=== PATIENT | female | born 1945 | race Caucasian/White ===

== ENCOUNTER → 2018-12-28 14:37 | Outpatient (CLI) | payer MEDICARE, BC, SELFPAY ==
--- NOTE | 2018-12-28 14:48 | XR_ITS ---
PROCEDURE: XR RIBS RT MIN 3V W CXR1V CLINICAL INDICATION: RT SIDE CHEST WALL PAIN Cough cough COMPARISON: No exams were available for comparison FINDINGS: A frontal view of the chest shows slight increased density in the right infrahilar region. Possibly due to underlying infiltrate. Multiple views of the right ribs were obtained. No acute rib findings. IMPRESSION: Possible patchy infiltrate in the right middle lobe otherwise negative Dictated by: Tim Horvath MD 12/28/2018 16:03 Signed by: <Electronically signed by Tim Horvath MD in [place]> 12/28/2018 16:03
== END ==
PROVIDERS: PCP Family Medicine; Visit Provider Family Medicine
DX: R07.89 Other chest pain (principal)
CPT/HCPCS: 71101

== ENCOUNTER → 2019-01-26 10:11 | Outpatient (CLI) | payer MEDICARE, BC, SELFPAY ==
--- NOTE | 2019-01-26 10:13 | MM_ITS ---
PROCEDURE: MM DIG SCREENING MAMM BI W/CAD CLINICAL INDICATION: SCREENING There is a history of breast cancer in patient's sister COMPARISON: DMSB DIGITAL MAMM-SCREEN BILATERAL from 01/22/2012 DMSB DIG MAMM-SCREEN KRIS from 05/03/2015 DMDXUAVL DIG MAMM-DX UNI ADD VIEWS-LT from 05/16/2015 DMDXUWAL DIG MAMM-DX UNI LT W ADD VIEW from 10/26/2015 TECHNIQUE: Standard CC and MLO images were obtained. R2 CAD reviewed. FINDINGS: Moderate diffuse fibroglandular densities are seen in both breasts. There is a benign-appearing macrocalcifications right breast and there are couple of benign-appearing microcalcifications in each breast. There is minimal arterial calcification in each breast. There is no suspicious lesion and no suspicious microcalcifications. IMPRESSION: Moderate breast density with no suspicious lesions seen BI-RAD Category: 2 Benign Finding(s) FOLLOW-UP: 1YR 1 Year Follow-up (A letter has been sent to the patient regarding results of the study.) Dictated by: Dr. Lucio Berger MD 01/30/2019 20:[address] Lucio Berger MD in [place] 01/30/2019 20:21
== END ==
PROVIDERS: PCP Family Medicine; Visit Provider Family Medicine
DX: Z12.31 Encounter for screening mammogram for malignant neoplasm of breast (principal)
CPT/HCPCS: 77067

== ENCOUNTER → 2020-11-16 08:08 | Outpatient (CLI) | payer MEDICARE, SELFPAY ==
--- NOTE | 2020-11-16 08:12 | MM_ITS ---
PROCEDURE INFORMATION: Exam: MG Screening 3D Mammography Exam date and time: 11/16/2020 8:12 AM Age: 75 years old Clinical indication: Encounter for screening mammogram for malignant neoplasm of breast . Family history of breast carcinoma. TECHNIQUE: Imaging protocol: Screening tomosynthesis and 2D mammography including computer-aided detection (CAD) when performed. COMPARISON: 1. MG MM DIG SCREENING MAMM BI W/CAD 01/26/2019 10:33 AM 2. MG DMDXUWAL DIG MAMM-DX UNI LT W ADD VIEW 10/26/2015 2:41 PM 3. MG DMDXUAVL DIG MAMM-DX UNI ADD VIEWS-LT 05/16/2015 1:06 PM FINDINGS: MAMMOGRAPHY: Breast composition: The breasts are heterogeneously dense, which may obscure small masses. Mass: No new suspicious masses. Architectural distortion: No suspicious distortion. Calcifications: No suspicious calcifications. Asymmetric density: None. Skin thickening: None. Axillary adenopathy: None. IMPRESSION: No mammographic evidence of malignancy. Annual screening is recommended unless otherwise clinically indicated. ASSESSMENT: BI-RADS Category 1: Negative
== END ==
PROVIDERS: PCP Family Medicine; Visit Provider Family Medicine
DX: Z12.31 Encounter for screening mammogram for malignant neoplasm of breast (principal)
CPT/HCPCS: 77063; 77067

== ENCOUNTER → 2021-03-12 09:43 | Outpatient (CLI) | payer MEDICARE, SELFPAY ==
--- NOTE | 2021-03-12 09:47 | FL_ITS ---
PROCEDURE: FL BARIUM SWALLOW MODIFIED CLINICAL INDICATION: DYSPHAGIA, COMPARISON: No exams were available for comparison TECHNIQUE: Patient administered varying consistencies of barium contrast, while viewed in lateral position under real-time fluoroscopy with cine recording. FLUOROSCOPY TIME:4 minutes and 39 seconds The study was performed in conjunction with speech pathologist. Please see that report & recommendations. FINDINGS: Patient was given varying consistencies of barium. No aspiration or penetration. IMPRESSION: Unremarkable modified barium swallow. Please see speech pathologist report and recommendations. Dictated by: Tim Horvath MD 03/13/2021 16:51 Tim Horvath MD in [place] 03/13/2021 16:51
--- NOTE | 2021-03-12 09:48 | FL_ITS ---
PROCEDURE: FL UPPER GI W AIR CLINICAL INDICATION: ESOPHAGEAL DYSPHAGIA COMPARISON: RF FL BARIUM SWALLOW MODIFIED from 03/12/2021 FINDINGS: Fluoroscopy time: 2.11 minutes. Circumferential narrowing noted at the distal esophagus which may be due to prior knee since fundoplication. Please correlate with patient's surgical history. If there has not been a prior knee since procedure then circumferential external lesion would be a consideration. No history available at this time. There is mild dilatation of the esophagus proximal 2 this area of narrowing. No hiatal hernia apparent. The stomach has an unremarkable appearance. The duodenal bulb descending and transverse portion of the duodenum have a somewhat patulous appearance. No obvious ulcer. There is a mildly prominent diverticulum projecting superiorly from the transverse portion of the duodenum. IMPRESSION: 1. Circumferential narrowing of the distal aspect of the esophagus at the GE junction possibly due to prior knee since fundoplication. Please correlate with surgical history. Mild dilatation of the esophagus proximal to this region with some delayed esophageal emptying. 2. Patulous appearance of the duodenum of uncertain clinical significance. Mildly prominent duodenal diverticulum. Dictated by: Tim Horvath MD 03/13/2021 08:15 Tim Horvath MD in [place] 03/13/2021 08:15
--- NOTE | 2021-03-13 08:40 | HMH.SLMBS2 ---
Speech & Language Evaluation Speech/Language Mod Barium Swallow Start: 03/12/21 11:37 Freq: once Status: Complete Protocol: Document 03/12/21 11:38 OLIVIA (Rec: 03/12/21 11:50 OLIVIA [id number]) General Information General Current Food Consistancy Regular,Thin Liquids Dentition Poor Dentition Comment: no molars Oxygen Status Room Air Facial Symmetry Symmetrical Patient Orientation Person,Place,Time,Situation Ability to Follow Directions Excellent Communication Ability No Impairment MBS Recommendations Diet Dietary Recommendations Regular,Thin Liquids Treatment/Strategies Strategy/Precaution Recommend Sitting Upright (90 deg),Small Bites and Sips,Alternate Liquids/Solids Mod Barium Swallow Impressions Summary and Impressions Oral Phase Impression Minimal Impairment Oral Phase Summary Ms. Babin was given the following consistencies: thins via straw and open cup, pudding, pureed, regular, and pill with thin wash. Ms. Babin did experience longer mastication times due to lack of molars. Pharyngeal Phase Impression Mild Impairment Pharyngeal Phase Summary Ms. Babin did exhibit flash penetration with large volume of thin liquids but no aspiration was noted. When advised to take smaller sips, no penetration was noted. Speech/Language MBS Assessment/Goals/Plan Assessment Date of Evaluation: 03/12/21 Evaluation Type Initial Certification Does Patient Qualify for Service No Qualify/Failure Comment No aspiration was noted during evaluation. Patient was advised to take smaller sips when drinking and to alternate between bite and a sip. Recommendations PHYSICIAN CERTIFICATION: The specified therapy services are required, authorized, and reviewed every 30 days. Diet Recommendations Normal Liquid Type Recommendations Normal/Thin SL Swallow Guidelines Standard Aspiration Prec. Dysphagia Swallow Precautions/Strategies Sitting Upright (90 deg),Small Bites and Sips,Alternate Liquids/Solids Plan Pt/Guardian verbally ack understanding Yes of dx/prognosis/goals G -code Required No Mod Barium Swallow Setup Exam Setup Radiologist
== END ==
PROVIDERS: PCP Family Medicine; Visit Provider Internal Medicine Gastroenterology
DX: R13.19 Other dysphagia (principal)
CPT/HCPCS: 70371; 74246; 92611

== ENCOUNTER → 2021-03-25 07:38 | Outpatient (CLI) | payer MEDICARE, SELFPAY ==
[2021-03-25 08:45] LABS: Blood Urea Nitrogen 18 mg/dl (7-17); Estimated Glomerular Filt Rate 81 ml/min (>60); GFR (African American) 98 ML/MIN (>60)
== END ==
PROVIDERS: Visit Provider Internal Medicine Gastroenterology
DX: R93.3 Abnormal findings on diagnostic imaging of other parts of digestive tract (principal)
CPT/HCPCS: 36415; 82565; 84520

== ENCOUNTER → 2021-03-27 09:45 | Outpatient (CLI) | payer MEDICARE, SELFPAY ==
--- NOTE | 2021-03-27 09:48 | CT_ITS ---
PROCEDURE: CT ABDOMEN W CON CLINICAL HISTORY: ABN UGI SERIES Esophageal dysphagia COMPARISON: CR,RF FL UPPER GI W AIR from 03/12/2021 RF FL BARIUM SWALLOW MODIFIED from 03/12/2021 TECHNIQUE: 75 mL Isovue 370. Oral contrast with Redicat. Axial images obtained with sagittal and coronal reformats. All CT scans at the facility use one or more dose reduction, viz: automated exposure control, ma/kV adjustment per patient size (including targeted exams where dose is matched to indication, i.e. head), or iterative reconstruction technique. FINDINGS: Lower thorax: Small serpiginous areas of increased density in the right lung base etiology indeterminate possibly due to atelectatic change or an area of scarring. Coronary artery calcification Abdomen: The lower esophagus is slightly dilated. There is a small hiatal hernia. At the GE junction there is concentric narrowing of the esophagus. This does not have a typical appearance for a Dangelo fundoplication. The esophageal wall is thickened at this area. Neoplasm is considered and upper endoscopy is suggested. Isolated esophagitis would be an additional consideration. No paraesophageal adenopathy at this region. Prior cholecystectomy. No focal liver lesion apparent. The spleen and adrenal glands and pancreas have an unremarkable appearance. There is a bandlike area soft tissue density along the posterior aspect of the gastric cardia and body junction. Patient gives history of having prior gastric surgery. This could possibly represent postsurgical change. Please correlate with surgical history. No renal or ureteral calculi. No hydronephrosis. No intestinal obstruction. There is thickening of the cecum and ascending colon Mild kyphosis of the lower thoracic spine with degenerative disc disease in the lower thoracic spine. IMPRESSION: 1. Concentric thickening of the distal esophagus with narrowing. Neoplasm or isolated reflux esophagitis is considered. Upper endoscopy suggested. 2. There is a small hiatal hernia and suspected postsurgical changes at the junction of the gastric cardia and body. Please correlate with surgical history. Dictated by: Tim Horvath MD 03/28/2021 08:42 Tim Horvath MD in [place] 03/28/2021 08:42
== END ==
PROVIDERS: PCP Family Medicine; Visit Provider Internal Medicine Gastroenterology
DX: R93.3 Abnormal findings on diagnostic imaging of other parts of digestive tract (principal)
CPT/HCPCS: 74160; Q9967

== ENCOUNTER → 2021-12-11 07:49 | Outpatient (CLI) | payer MEDICARE, SELFPAY ==
--- NOTE | 2021-12-11 08:00 | MM_ITS ---
PROCEDURE INFORMATION: Exam: MG Bilateral Screening 3D Mammography Exam date and time: 12/11/2021 8:02 AM Age: 76 years old Clinical indication: Screening examination. Her sister had breast cancer. TECHNIQUE: Imaging protocol: Bilateral Screening tomosynthesis and 2D mammography including computer-aided detection (CAD) when performed. COMPARISON: 1. MG MM DIG SCREENING MAMM BI W/CAD 11/16/2020 8:33 AM 2. MG MM DIG SCREENING MAMM BI W/CAD 01/26/2019 10:33 AM 3. MG DMDXUWAL DIG MAMM-DX UNI LT W ADD VIEW 10/26/2015 2:41 PM 4. MG DMDXUAVL DIG MAMM-DX UNI ADD VIEWS-LT 05/16/2015 1:06 PM FINDINGS: MAMMOGRAPHY: Breast composition: The breasts are heterogeneously dense, which may obscure small masses. Mass: No suspicious mass. Architectural distortion: None. Calcifications: No suspicious calcifications. Asymmetric density: None. Skin thickening: None. Axillary adenopathy: None. IMPRESSION: No mammographic evidence of malignancy. Annual screening is recommended unless otherwise clinically indicated. ASSESSMENT: BI-RADS Category 1: Negative
== END ==
PROVIDERS: PCP Family Medicine; Visit Provider Family Medicine
DX: Z12.31 Encounter for screening mammogram for malignant neoplasm of breast (principal)
CPT/HCPCS: 77063; 77067

== ENCOUNTER → 2022-06-17 11:35 | Outpatient (CLI) | payer MEDICARE, SELFPAY ==
--- NOTE | 2022-06-17 11:45 | XR_ITS ---
FINAL REPORT CLINICAL HISTORY: PAIN x 2-3 months FINDINGS: Left knee Three views were obtained. There is no acute fracture or dislocation. There are moderate degenerative changes. Meniscal calcification is identified. There is chronic calcification adjacent to the medial femoral condyle. No joint effusion is identified. IMPRESSION: Degenerative and chronic appearing findings. Reviewed, Interpreted and Dictated by Sumanth Malone III, MD Transcribed by Linda Gasca Authenticated and [facility]
== END ==
PROVIDERS: PCP Family Medicine; Visit Provider Family Medicine
DX: M25.562 Pain in left knee (principal)
CPT/HCPCS: 73562

== ENCOUNTER 2022-10-16 07:59 | Emergency (ER) | payer MEDICARE, OTHER, SELFPAY ==
[2022-10-16 08:10] VITALS: BP 120/69; PULSE 69; RESP 20; TEMP 36.8; O2SAT 99; BMI 21.3
--- NOTE | 2022-10-16 08:13 | XR_ITS ---
FINAL REPORT CLINICAL HISTORY: fall, lt foot pain FINDINGS: LEFT FOOT Three views of the left foot demonstrate no acute fracture or dislocation. There are remote healed fracture deformities of the distal 1st metatarsal, and the mid 2nd and 3rd metatarsals. There is moderate osteoarthritic change of the 1st MTP joint. The visualized joint spaces are normally aligned. The soft tissues are unremarkable. IMPRESSION: No acute bony abnormality. Remote healed fracture deformities of the distal 1st metatarsal in the mid 2nd and 3rd metatarsals. Reviewed, Interpreted and Dictated by Hugo Rusos MD Transcribed by Aliyah Salgado Authenticated and [facility]
--- NOTE | 2022-10-16 08:13 | XR_ITS ---
FINAL REPORT CLINICAL HISTORY: fall, lt ankle pain FINDINGS: LEFT ANKLE Three views demonstrate no acute fracture or dislocation. The visualized joint spaces are normally aligned. There is mild soft tissue swelling of the ankle. There is a small plantar calcaneal spur present. IMPRESSION: No acute bony abnormality. Mild soft tissue swelling. Reviewed, Interpreted and Dictated by Hugo Russo MD Transcribed by Aliyah Salgado Authenticated and [facility]
--- NOTE | 2022-10-16 08:39 | EXP.UTC ---
Discharge Plan Disposition Patient Disposition: Home, Self-Care Condition: Good Prescriptions Prescriptions: No Action No Known Home Medications Referrals Follow up/Referrals: Vinicius Huizar MD [Primary Care Provider] - See instructions Marcia Batres DPM [Staff Physician] - See instructions Activity Restrictions/Add. Instructions Additional Instructions/Restrictions: Rest the extremity, Elevate the extremity as tolerated while you are resting. Take tylenol for pain. Follow up with Dr. Batres (podiatry) if you continue to have symptoms. I put in a referral but you need to call her office and schedule an appointment. Follow up with your regular doctor. GO TO THE ER FOR ANY WORSENING SYMPTOMS Clinical Impressions Clinical Impression: Sprain of left foot Instructions Patient Instructions: DI for Foot Sprain Discharge ED Provider: Adalberto Yi [facility] General Stated complaint: LT ankle pain Fall@home 10/15 Mode of Arrival: Ambulatory Source of Information: Patient Limitations: No Limitations Time Seen by Provider: 10/16/22 08:39 Description of Symptoms (Recalled from Triage Doc. by RN): PATIENT C/O LEFT ANKLE AND FOOT PAIN AFTER FALLING LAST NIGHT HEENT Symptoms (Recalled from RN notes): No Resp Symptoms (Recalled from RN notes): No Skin Symptoms (Recalled from RN notes): No MS Symptoms (Recalled from RN notes): Yes Functional Status (Recalled from RN notes): WNL History of Present Illness Provider Complaint: She states that she fell last night and twisted her left foot and ankle. Related Data Home Medications Medication Instructions Recorded Confirmed No Known Home Medications 07/04/22 08/14/22 Allergies Allergy/AdvReac Type Severity Reaction Status Date / Time No Known Allergies Allergy Verified 08/14/22 09:14 Worker's Comp Is this a Worker's Comp case?: No [facility] Disclaimer: The information contained in this section may have been updated after the patient was seen, as this information can be updated by other users. Social History Smoking Status: Never smoker alcohol intake: never current occupational status: retired Travel in the last 8 weeks: None ROS Obtained: Yes All systems reviewed & no additional complaints except as documented Constitutional Constitutional: Denies chills and Denies fever(s) Eyes Eyes: Denies eye discharge ENT Ears, Nose, Mouth, and Throat: Denies dizziness, Denies otalgia and Denies sore throat Cardiovascular Cardiovascular: Denies chest pain Respiratory Respiratory: Denies shortness of breath, Denies chest congestion, Denies cough, Denies stridor and Denies wheezing Gastrointestinal Gastrointestingal: Denies nausea or vomiting Musculoskeletal Musculoskeletal: Reports as per HPI Integumentary/Breasts Skin/Breast: Denies rash Neurologic Neurologic: Denies dizziness and Denies paresthesias Allergic/Immunologic Allergic/Immunologic: Denies wheezing Physical Exam General General appearance: alert and in no apparent distress Head Head exam: atraumatic, normocephalic and normal inspection Eye Eye exam: Present normal appearance, PERRL and EOMI ENT ENT exam: Present normal exam, normal oropharynx, mucous membranes moist, TM's normal bilaterally and normal external ear exam Neck Neck exam: Present normal inspection, full ROM and trachea midline; Absent meningismus or lymphadenopathy Chest Chest inspection: Present normal inspection and symmetric chest wall rise; Absent tenderness Respiratory Respiratory exam: Present normal lung sounds bilaterally; Absent respiratory distress Cardiovascular Cardiovascular exam: Present regular rate and normal rhythm; Absent JVD Abdominal Exam Abdominal exam: Present soft and normal bowel sounds; Absent distention, tenderness or guarding Extremities Exam Extremities exam: Present normal capillary refill; Absent calf tenderness Expanded L
[2022-10-16 09:06] VITALS: BP 120/69; PULSE 69; RESP 20; TEMP 36.8; O2SAT 99
== END 2022-10-16 09:10 | disposition home or self-care (01) ==
PROVIDERS: Emergency Provider Nurse Practitioner Family; PCP Family Medicine
DX: S93.602A Unspecified sprain of left foot, initial encounter (principal); W19.XXXA Unspecified fall, initial encounter
CPT/HCPCS: 73610; 73630; 99204; 99212; G0463

== ENCOUNTER → 2022-12-17 08:00 | Outpatient (CLI) | payer MEDICARE, OTHER, SELFPAY ==
--- NOTE | 2022-12-17 08:08 | MM_ITS ---
PROCEDURE INFORMATION: Exam: MG Bilateral Screening 3D Mammography Exam date and time: 12/17/2022 8:19 AM Age: 77 years old Clinical indication: Screening examination; Family history of breast cancer in sister; Sister's age: 50 years TECHNIQUE: Imaging protocol: Bilateral Screening tomosynthesis and 2D mammography including computer-aided detection (CAD) when performed. COMPARISON: MG MM DIG SCREENING MAMM BI W/CAD 12/11/2021 8:02 AM FINDINGS: MAMMOGRAPHY: Breast composition: The breasts are heterogeneously dense, which may obscure small masses. Mass: None. Architectural distortion: None. Calcifications: No suspicious calcifications. Asymmetric density: None. Skin thickening: None. Axillary adenopathy: None. IMPRESSION: No mammographic evidence of malignancy. Annual screening is recommended unless otherwise clinically indicated. ASSESSMENT: BI-RADS Category 1: Negative
--- NOTE | 2022-12-17 09:00 | XR_ITS ---
FINAL REPORT CLINICAL HISTORY: OSTEOPOROSIS COMPARISON: None FINDINGS: Using L1-4, the bone mineral density of the spine is 0.826 g/cm2, corresponding to T-score of -2.0, consistent with osteopenia. Using the left hip, the bone mineral density of the femoral neck is 0.503 g/cm2, corresponding to a T-score of -3.1, consistent with osteoporosis. Using the right hip, the bone mineral density of the femoral neck is 0.485 g/cm2, corresponding to a T-score of -3.3, consistent with osteoporosis. FRAX not reported because T score for bilateral hips below -2.5. NOTE: T-score: Standard deviation compared with peak bone mass of young adult mean. *Following the recommendations of the International Society of Bone densitometry, classification of hip BMD is based on the lower of two T-scores; total hip or femoral neck. IMPRESSION: Diminished bone mineral density consistent with osteoporosis. Reviewed, Interpreted and Dictated by Hugo Russo MD Transcribed by Oanh Cheema Authenticated and [facility]
== END ==
PROVIDERS: PCP Family Medicine; Visit Provider Family Medicine
DX: Z12.31 Encounter for screening mammogram for malignant neoplasm of breast (principal); Z78.0 Asymptomatic menopausal state; Z13.820 Encounter for screening for osteoporosis
CPT/HCPCS: 77063; 77067; 77080

== ENCOUNTER 2023-07-13 14:42 | Outpatient (CLI) | payer MEDICARE, OTHER, SELFPAY ==
--- NOTE | 2023-07-13 14:47 | XR_ITS ---
FINAL REPORT CLINICAL HISTORY: PAIN JOINT, RIGHT KNEE FINDINGS: Three views of the right knee reveal no evidence of fracture or dislocation. The bony alignment is normal. Mild to moderate degenerative changes are noted. There is meniscal calcification. There is no evidence of joint effusion. No localized soft tissue abnormality is identified. IMPRESSION: Degenerative changes with no acute bony abnormality. Reviewed, Interpreted and Dictated by Sumanth Malone III, MD Transcribed by Oriana Kat Authenticated and [facility]
== END 2023-07-13 23:59 ==
PROVIDERS: PCP Family Medicine; Visit Provider Family Medicine
DX: M25.561 Pain in right knee (principal)
CPT/HCPCS: 73562

== ENCOUNTER 2023-08-04 08:33 | Outpatient (CLI) | payer MEDICARE, OTHER, SELFPAY ==
--- NOTE | 2023-08-04 08:49 | XR_ITS ---
FINAL REPORT CLINICAL HISTORY: left knee pain COMPARISON: 06/17/2022 FINDINGS: Three views of the left knee reveal no evidence of fracture or dislocation. The bony alignment is normal. Moderate degenerative change is present as well as meniscal calcification. A small joint effusion is present. There is a chronic calcification adjacent to the medial femoral condyle. IMPRESSION: No acute abnormality identified. Moderate degenerative change, small joint effusion. Reviewed, Interpreted and Dictated by Sumanth Malone III, MD Transcribed by Aliyah Salgado Authenticated and [facility]
--- NOTE | 2023-08-04 09:20 | XR_ITS ---
FINAL REPORT CLINICAL HISTORY: knee pain COMPARISON: 07/13/2023 FINDINGS: Three views of the right knee reveal no evidence of fracture or dislocation. The bony alignment is normal. There is mild and moderate degenerative change present in the right knee, with meniscal calcification. There is a moderate joint effusion, which has increased in size since the prior film of July 12. No localized soft tissue abnormality is identified. IMPRESSION: Mild and moderate degenerative change, with meniscal calcification. Moderate joint effusion which is increased in size since prior exam. Reviewed, Interpreted and Dictated by Sumanth Malone III, MD Transcribed by Aliyah Salgado Authenticated and [facility]
== END 2023-08-04 23:59 ==
LOC: RAD 08:34
PROVIDERS: PCP Family Medicine; Visit Provider Orthopaedic Surgery
DX: M25.562 Pain in left knee (principal); M25.561 Pain in right knee
CPT/HCPCS: 73562

== ENCOUNTER 2024-01-14 08:32 | Outpatient (CLI) | payer MEDICARE, OTHER, SELFPAY ==
--- NOTE | 2024-01-14 08:36 | MM_ITS ---
PROCEDURE INFORMATION: Exam: MG Bilateral Screening 3D Mammography Exam date and time: 01/14/2024 8:25 AM Age: 78 years old Clinical indication: Screening mammogram TECHNIQUE: Imaging protocol: Bilateral Screening tomosynthesis and 2D mammography including computer-aided detection (CAD) when performed. COMPARISON: 1. MG MM DIG SCREENING MAMM BI W/CAD 12/17/2022 8:19 AM 2. MG MM DIG SCREENING MAMM BI W/CAD 12/11/2021 8:02 AM 3. MG MM DIG SCREENING MAMM BI W/CAD 11/16/2020 8:33 AM FINDINGS: MAMMOGRAPHY: Breast composition: The breast is heterogeneously dense, which may obscure small masses. Mass: None. Architectural distortion: No new or suspicious architectural distortion. Calcifications: Stable benign-appearing calcifications are present. No new or suspicious cluster of microcalcifications have developed. Asymmetric density: No new or suspicious asymmetric density is present Skin thickening: None. Axillary adenopathy: None. IMPRESSION: No mammographic evidence of malignancy. Recommend annual screening mammography unless otherwise clinically indicated. ASSESSMENT: BI-RADS category 2: Benign.
== END 2024-01-14 23:59 | disposition home or self-care (01) ==
LOC: RAD 08:33
PROVIDERS: PCP Family Medicine; Visit Provider Family Medicine
DX: Z12.31 Encounter for screening mammogram for malignant neoplasm of breast (principal)
CPT/HCPCS: 77063; 77067

== ENCOUNTER 2024-04-21 16:11 | Emergency (ER) | payer MEDICARE, OTHER, SELFPAY ==
[2024-04-21 16:12] VITALS: BP 174/72; PULSE 74; RESP 20; TEMP 37.1; O2SAT 98; BMI 20.3
[2024-04-21 16:57] VITALS: BP 168/70; PULSE 68; RESP 18; TEMP 36.6; O2SAT 98
[2024-04-21] MEDS: TET/DIPHTH/PERT-ADULT 0.5ML SYRINGE 0.5 ML IM (17:02)
--- NOTE | 2024-04-21 17:04 | ED_ITS ---
<Statement entered by Kait Brady DO - 04/21/24 21:58> I was consulted by the YENY, and we discussed the complexity of the problems being addressed. I approved the treatment and management plan for this patient's care in the emergency department, thus performing a substantive portion of the medical decision making. Kait Brady DO Discharge Plan Disposition Patient Disposition: Home, Self-Care Condition: Good Prescriptions Prescriptions: No Action No Known Home Medications Referrals Follow up/Referrals: Vinicius Huizar MD [Primary Care Provider] - See instructions Activity Restrictions/Add. Instructions Additional Instructions/Restrictions: As we discussed you may wash with soap and water pat your Steri-Strips dry. Do not scrub or rub over the Steri-Strips. They should fall off in 7 to 10 days. Return for any increased redness pain or swelling. Clinical Impressions Clinical Impression: Skin tear Print Language Print Language: French Discharge ED Provider: Kait Brady General Adult HPI General Chief complaint: Skin/Abscess/Foreign Body Stated complaint: AO 04-21 right hand cut Time Seen by Provider: 04/21/24 16:24 Mode of Arrival: Ambulatory Source of Information: Patient Limitations: No Limitations Description of Symptoms (Recalled from ER Triage Doc. by RN): pt hit right hand on door knob and peeled skin back, bleeding is controlled and patient is on no thinners and edges are approxiamate History of Present Illness HPI narrative: Patient presents for evaluation of a skin tear to the dorsum of her right hand. Patient struck a metal door handle with the back of her right hand causing the skin to tear. She denies any numbness tingling loss of motor sensation bony injury. Related Data Home Medications ?Medication ?Instructions ?Recorded ?Confirmed No Known Home Medications 07/04/22 08/04/23 Allergies Allergy/AdvReac Type Severity Reaction Status Date / Time No Known Allergies Allergy Verified 11/28/22 14:59 [facility] Disclaimer: The information contained in this section may have been updated after the patient was seen, as this information can be updated by other users. Social History Smoking Status: Never smoker alcohol intake: never current occupational status: retired Travel in the last 8 weeks: None Have you lived/traveled outside US in past 30 days?: No Contact w/someone who lives/traveled outside US past 30 days?: No Exposure to someone with infectious disease in past 14 days?: No Do you have a fever (greater than 100.4 F or 38 C)?: No Have you tested positive for COVID-19: No Exposed to someone with COVID-19 in past 14 days?: No Do you have a sore throat?: No Do you have a cough?: No Do you have any weakness?: No Do you have any diarrhea?: No Are you experiencing any unusual bleeding?: No Do you have any muscle aches/pain?: No Do you have any abdominal pain?: No Are you experiencing loss of taste or smell?: No Other Medical History Have you received the Pneumonia Vaccine: Yes ROS Obtained: Yes Systems reviewed as appropriate & no additional complaints except as documented Physical Exam General General appearance: alert and in no apparent distress Respiratory Respiratory exam: Present normal lung sounds bilaterally Cardiovascular Cardiovascular exam: Present regular rate Neurological Exam Neurological exam: Present alert and oriented X3 Medical Decision Making Medical Records Medical records reviewed: Yes I reviewed the patient's medical records. Screening: Per USPSTF and CDC recommendations, given the prevalence of disease in our region, it is our hospital?s policy to screen for HIV and viral Hepatitis for all patients aged 18 and over and those with ongoing risk factors. Kirill Inquiry Pt receiving controlled substance: No Vital Signs: 04/21/24 16:12 04/21/24 16:57 Temperature 98.7 F 97.9 F Temperature Source Oral Oral Pulse Rate 68 Pulse Rate [Left Radial] 74 Respiratory Rate 20 18 Blood Pressure 168/70 H Blood Pressure [Right Arm] 174/72 H Blood Pressure Mean [Right Arm] 106 Blood Pressure Position Sitting 02 Sat by Pulse Oximetry 98 Oxygen Delivery Method Room Air Orders (Tests/Meds): ED MEDICATIONS Discontinued Medications Generic Name Dose Route Start Last Admin Trade Name Freq PRN Reason Stop Dose Admin Tetanus/Reduced Diphtheria/Acell Pertussis 0.5 ml 04/21/24 16:58 04/21/24 17:02 Tet/Diphth/Pert-Adult 0.5ml Syringe IM 04/21/24 16:59 0.5 ml .ONCE ONE Administration Medical Decision Narrative: In summary patient is a 78-year-old female who presents to the emergency department for evaluation of skin tear to the dorsum of her right hand.. Patient is hemodynamically stable upon arrival, afebrile. Physical exam is remarkable for a 5 cm semicircular skin tear over the the right second MCP. There is no bony deformity patient is neurovascularly intact bleeding is controlled. Differential diagnosis was considered including complex laceration versus superficial however exam easily confirms that this is a superficial skin tear thus other possible diagnoses were not pursued]. Initial workup with labs and imaging was considered however patient is hemodynamically stable there is no active bleeding and patient has full range of motion motor and sensory intact thus deferred. Initial interventions include Tdap. I had an interactive discussion with the patient regarding repair options including sutures versus Steri-Strips and skin glue. As the skin is likely unviable suturing is the least likely option although skin glue provides a measure of protective against deeper infection. Via patient directed decision making she elected for the skin glue instead of sutures that she did not have to come back and have them removed. Thus I repaired her wound with 6 Steri-Strips and Dermabond sealing the wound and devitalized skin in place. Patient is thus appropriate for discharge with strict return precautions and wound care instructions given to them by myself. Procedures Laceration Laceration 1: Site: hand (Right dorsum) Side (If applicable): right Size (cm): 5 Description: other (Semicircular skin tear) Depth: simple, single layer Pre-repair: wound explored, irrigated extensively and deep structures intact Skin layer closed with: Dermabond and other (Steri-Strips) Critical Care Critical Care Time Critical Care Time: No
== END 2024-04-21 17:05 | disposition home or self-care (01) ==
PROVIDERS: Emergency Provider Emergency Medicine; PCP Family Medicine
DX: M79.641 Pain in right hand (principal); S61.411A Laceration without foreign body of right hand, initial encounter; Z23 Encounter for immunization; W22.8XXA Striking against or struck by other objects, initial encounter; Y93.89 Activity, other specified; Y92.008 Other place in unspecified non-institutional (private) residence as the place of occurrence of the external cause
CPT/HCPCS: 90471; 90715; 99283

== ENCOUNTER 2024-10-31 16:35 | Emergency (ER) | payer MEDICARE, OTHER, SELFPAY ==
--- OUTSIDE RECORDS SUMMARY | 2023-11-05 09:30 | XMS_ITS ---
Author Organization [facility] Address [address] [place] [id number] Care Team Providers Care Switchboard Receptionist Name Role Phone Vinicius Huizar Primary Care Provider [phone] Ros [place] Unavailable [phone] Allergies No Known Allergies REASON FOR VISIT cut on legs Medications Medication SIG (Take, Route, Frequency, Duration) Notes Start Date End Date Status Ondansetron 4 MG 1 tablet on the tong ue and allow to dissolve Orally Once a day; Duration: 30 day(s) Active Hyoscyamine Sulfate 0.125 MG 1 tablet as needed Orally every 4 hrs Active Alendronate Sodium 70 MG 1 tablet 30 min utes before the first food, beverage or medicine of the day with plain water Orally once weekly 12/23/2022 Active Vitamin D-3 125 MCG (5000 UT) 1 cap(s) orally once a week 12/24/2020 Active traMADol HCl 50 MG 1 tablet Orally four times a day as needed 07/18/2023 Active Metoclopramide HCl 5 MG 1 tablet before meals Orally Twice a day; Duration: 30 day(s) Active Mupirocin 2 % 1 application Sizing Sponger ally Twice a day 11/05/2023 Active Cephalexin 500 MG 1 tablet Orally Two times a day; Duration: 7 days 11/05/2023 Active Escitalopram Oxalate 5 MG 1 tablet Orall y once daily; Duration: 90 days Active Vital Signs Weight 127 lbs 11/05/2023 Blood pressure systolic 122 mm Hg 11/05/19 24 Blood pressure diastolic 72 mm Hg 024 Heart Rate 82 /min 11/05/2023 Height 63.50 in 11/05/2023 BMI 22.14 kg/m2 11/05/2023 Encounters Encounter Location Date Provider Diagnosis [facility] [address] [place] [id number] 11/05/2023 Ros Shel[place] Local infection of t alessia skin and subcutaneous tissue, unspecified L08.9 and Skin abrasion T14.8XXA Assessments Encounter Date Diagnosis (ICD Code) Assessment Notes Treatment Notes Treatment Clinical Notes Section Notes 11/05/2023 Local infection of the skin and subcutaneous tissue, unspecified (ICD-10 - L08.9) 11/05/2023 Skin abrasion (ICD-10 - T14.8XXA) Plan Of Treatment Medication Medication Name Sig Start Date Stop Date Notes Mupirocin 2 % 1 application Externally Twice a day 024 Cephalexin 500 MG 1 tablet Orally Two times a day; Duration: 7 days 11/05/2023 Next Appt Details Follow Up: prn, Reason: Progress Notes * Reba HINSONDOB:1945 (79 yo F)Acc No.[id number]:11/05/2023 Progress Notes Patient: Reba HUA Provider: RAMONA Massey :1945 A ge:78 Y S ex:Female Date:11/05/2023 Address:[address] [place], [place] [phone] Pcp:Vinicius Huizar Subjective: * Chief Complaints: * 1 . Cut on legs. * HPI: D ermatology: 78 year old female presents with c/o Wound P t complains of open wound on lt gomez for a couple weeks, states she was doing yard work and noticed it after. Pt states she has been putting Mupiricin ointment on it but has not noticed much improvement. Wound d oes have redness around it and is warm to the touch, pt concerned it may be infected. * ROS: C ARDIOLOGY: no D izziness. n o C hest pain. G ASTROENTEROLOGY: no N ausea. n o V omiting. U ROLOGY: no D ifficulty urinating. n o B lood in urine. * Medical History: Josie hunterageal Reflux, Hiatal Hernia, Dr. Lutz @ , [...] plain water Orally once weekly , Taking traMADol HCl 50 MG Tablet 1 tablet Orally four times a day as needed , Taking Escitalopram Oxalate 5 MG Tablet 1 tablet Orally once daily , Medication List reviewed and reconciled with the patient * Allergies: N .K.D.A. Objective: * Vitals: W t:127, Temp:98.0, BP:122/72, HR:82, Nurse:christian, Ht: 63.50, BMI:22.14. * Examination: G eneral Examination: General Appearance: N AD. C hest: n ormal shape and expansion. H eart: R SR. L ungs: c lear to auscultation. S kin: left lower leg with an abrasion with surrounding erythema, right lower leg with 3 abrasions with surrounding erythema, mildly ttp. Assessment: * Assessment: 1. L ocal infection of the skin and subcutaneous tissue, unspecified - L08.9 (Primary) ? 2 . S kin abrasion - T14.8XXA Plan: * Treatment: * Follow Up: p rn * Images: Billing Information: * Visit Code: 63516 Office Visit, Est Pt., Level 3. * Procedure Codes: * Electronic signature of RAMONA Naik on 10/31/2024 at 05:18 PM EDT Sign off status: Pending * Provider: RAMONA Mas[place] Date: 11/05/2023 Generated for Lynne sarah/Vikas/Edwinsmitting on: 10/31/2024 05:18 PM EDT History and Physical Notes * HPI (History of Present Illness) Category Sub-Category Detail Notes Category Not es Dermatology Wound Pt complains of open wound on lt gomez for a couple weeks, states she was doing yard work and noticed it after. Pt states she has been putting Mupiricin ointment on it but has not noticed much improvement. Wound does have redness around it and is warm to the touch, pt concerned it may be infected Examination Category Sub-Category Detail Notes Category Not es General Examination Heart: RSR Lungs: clear to auscultatio n General Appearance: NAD Skin: left lower leg with an abrasion with surrounding erythema, right lower leg with 3 abrasions with surrounding erythema, mildly ttp Chest: normal shape and exp ansion
--- OUTSIDE RECORDS SUMMARY | 2024-01-07 05:30 | XMS_ITS ---
Author Organization [facility] Address [address] [facility] [address] [place] [phone] Care Team Providers Care Tennis Centre Manager Name Role Phone Vinicius Huizar Primary Care Provider Allergies No Known Allergies Results Component Value Reference Range Notes P-Vitamin B12 Reviewed date:01/08/2024 12:20:18 PM Interpretation:1439 Performing Lab: Notes/Report: Test performed by [facility] [address] [place], [place] [address] [place] , [address], [place] [address] Kojo Waldron MD, Solidworks Designer CLIA: [id number] Vitamin B12 8268 133-9738 pg/mL P-Comprehensive Metabolic Pa viktoriya (CMP) Reviewed date:01/08/2024 12:20:18 PM Interpretation:Normal Performing Lab: Notes/Report: Test performed by [facility] [address] [place] [address] , [address], [place] [address] Kojo Waldron MD, Solidworks Designer CLIA: [id number] Sodium 143 135-145 mmol/L Potassium 4.4 3.5-5.3 mmol/L Chloride 107 97-108 mmol/L CO2 24 22-32 mmol/L Glucose 88 65-99 mg/dL BUN 17 8-23 mg/dL Creatinine 0.58 0.50-1.00 mg/dL Calcium 8.7 8.6-10.4 mg/dL eGFR by Creatinine 92 >59 mL/min/1.73m2 Protein 6.1 6.0-8.3 g/dL Albumin 4.0 3.5-5.3 g/dL Alkaline Phosphatase 75 35-121 IU/L ALT (SGPT) 17 <5-47 IU/L AST (SGOT) 24 <5-40 IU/L Bilirubin, Total 0.3 <0.2-1.2 mg/dL A/G Ratio 1.9 1.1-2.5 P-Lipid Panel Reviewed date:01/08/2024 12:20:18 PM Interpretation:Normal Performing Lab: Notes/Report: Test performed by [facility], [place] [address] [facility] , [place] [address] Kojo Waldron MD, Solidworks Designer CLIA: [id number] Cholesterol 139 <200 mg/dL Triglycerides 60 <150 mg/dL HDL Cholesterol 53 >39 mg/dL Cholesterol / HDL Ratio 2.62 0.00-4.44 Ratio Non-HDL Cholesterol 86 <130 mg/dL LDL Cholesterol (Calculation) 74 <130 mg/dL LDL Cholesterol Levels* Less than 100 mg/dL Optimal 100 to 129 mg/dL Near Optimal/ Above Optimal 130 to 159 mg/dL Borderline High 160 to 189 mg/dL High 190 mg/dL and above Very High * Categories as recommended by the 2004 ATPIII guidelines LDL/HDL Ratio 1.4 <3.3 Ratio ____ LDL Cholesterol Patient History ____ Test Date: 01/07/2024 LDL Results: 74 Units: mg/dL % Change: - ____ P-Vitamin D 25-Hydroxy Reviewed date:01/08/2024 12:20:18 PM Interpretation:31.3 Performing Lab: Notes/Report: Test performed by [facility] [address] [place] [address] , [address], [place] [address] Kojo Waldron MD, Solidworks Designer CLIA: [id number] Vitamin D 25-Hydroxy 31.3 30.0-100.0 ng/mL Interpretation of Vitamin D 25 OH: < 20 ng/mL - Deficiency 20 - 29 ng/mL - Insufficiency 30 - 100 ng/mL - Sufficiency > 100 ng/mL - Super-therapeutic- toxicity may occur above this level. Clinical correlation required. Mammogram Reviewed date:01/20/2024 01:10:11 PM Interpretation:benign, annual f/u Performing Lab: Notes/Report: benign, annual f/u result benign, annual f/u REASON FOR VISIT 3 month follow up Medications Medication SIG (Take, Route, Frequency, Duration) Notes Start Date End Date Status Vitamin D-3 125 MCG (5000 UT) 1 cap(s) orally once a week 12/24/2020 Active Escitalopram Oxalate 5 MG 1 tablet Orall y once daily; Duration: 90 days Active Alendronate Sodium 70 MG TAKE 1 TABLET B Y MOUTH ONCE A WEEK 30 MINUTES BEFORE THE FIRST FOOD, BEVERAGE OR MEDICINE OF THE DAY WITH PLAIN WATER; Duration: 84 Active Vital Signs Weight 134.8 lbs 01/07/2024 Blood pressure systolic 124 mm Hg 01/07/20 24 Blood pressure diastolic 70 mm Hg 024 Heart Rate 66 /min 01/07/2024 Height 63.50 in 01/07/2024 BMI 23.50 kg/m2 01/07/2024 Encounters Encounter Location Date Provider Diagnosis [facility] [address] [facility] [address] [place], [place] [phone] 01/07/2024 Vinicius [place] Anxiety F41.9 ; Ghada min D deficiency E55.9 ; Vitamin B 12 deficiency E53.8 ; Osteoporosis M81.0 ; Elevated alkaline phosphatase level R74.8 ; Screening, lipid Z13.220 and Breast cancer screening by mammogram Z12.31 Assessments Encounter Date Diagnosis (ICD Code) Assessment Notes Treatment Notes Treatment Clinical Notes Section Notes 01/07/2024 Anxiety (ICD-10 - F41.9) 01/07/2024 Vitamin D deficiency (ICD-10 - E55.9) 01/07/2024 Vitamin B 12 deficiency (ICD-10 - E53.8) 01/07/2024 Osteoporosis (ICD-10 - M81.0) 01/07/2024 Elevated alkaline phosphatase level (ICD-10 - R74.8) 01/07/2024 Screening, lipid (ICD-10 - Z13.220) 01/07/2024 Breast cancer screening by mammogram (ICD-10 - Z12.31) Plan Of Treatment Medication Medication Name Sig Start Date Stop Date Notes Escitalopram Oxalate 5 MG 1 tablet Orall y once daily; Duration: 90 days Next Appt Details Follow Up: 6 Months, Reason: Progress Notes * Reba HINSONDOB:1945 (79 yo F)Acc No.[id number]:01/07/2024 Progress Notes Patient: Reba HUA Provider: Jocelyn Huizar M.D. :1945 A ge:78 Y S ex:Female Date:01/07/2024 Address:[address] [place] [address] Subjective: * Chief Complaints: * 1 . 3 month follow up. * HPI: P sychology: 78 year old female presents with c/o depression P t here to f/u on depression with anxiety, states she is doing well on medications and does not have any concerns today. * ROS: D ERMATOLOGY: no R laura. [...] 07/04/2014, [facility] Feeding Tube 09/2014, EGD 01/2021, Esophageal dilitation 05/2021, Esophageal dilitation October 2023. * Hospitalization/Major Diagno stic Procedure: D enies [...] Sexually active: yes. * Medications: T aking Vitamin D-3 125 MCG (5000 UT) Tablet 1 cap(s) orally once a week , Taking Escitalopram Oxalate 5 MG Tablet 1 tablet Orally once daily , Taking Alendronate Sodium 70 MG Tablet TAKE 1 TABLET BY MOUTH ONCE A WEEK 30 MINUTES BEFORE THE FIRST FOOD, BEVERAGE OR MEDICINE OF THE DAY WITH PLAIN WATER , Discontinued Metoclopramide HCl 5 MG Tablet 1 tablet before meals Orally Twice a day , Discontinued Hyoscyamine Sulfate 0.125 MG Tablet 1 tablet as needed Orally every 4 hrs , Discontinued Ondansetron 4 MG Tablet Disintegrating 1 tablet on the tongue and allow to dissolve Orally Once a day , Discontinued traMADol HCl 50 MG Tablet 1 tablet Orally four times a day as needed , Discontinued Cephalexin 500 MG Tablet 1 tablet Orally Two times a day , Discontinued Mupirocin 2 % Ointment 1 application Externally Twice a day , Medication List reviewed and reconciled with the patient * Allergies: N .K.D.A. Objective: * Vitals: W t:134.8, Temp:98.0, BP:124/70, HR:66, Nurse:christian, Ht: 63.50, BMI:23.50. * Examination: P sychology: General Appearance: N AD. G rooming : a dequate.?Eye contact : cynthia tapia. M ood : p leasant. H eart: R SR. L ungs: c lear to auscultation. Assessment: * Assessment: 1. A nxiety - F41.9 (Primary) 2 . V itamin D deficiency - E55.9 ?3. V itamin B 12 deficiency - E53.8 4 . O steoporosis - M81.0 ? 5 . E levated alkaline phosphatase level - R74.8 6 . S creening, lipid - Z13.220 7 . B reast cancer screening by mammogram - Z12.31 Plan: * Treatment: 2. V itamin D deficiency L AB: P-Vitamin D 25-Hydroxy (Collection Date & Time - 01/07/2024 08:50 AM) 3 1.3 Value Reference Range V itamin D 25-Hydroxy 31.3 30.0-100.0 - ng/mL * Vanessa Curry Ann 4 12:20:10 PM >See phone encounter 3.?Vitamin B 12 deficiency?LAB: P-Vitamin B12 (Collection Date & Time - 01/07/2024 08:50 AM)?1439* Value Reference Range V itamin B12 1439 H 232-1245 - pg/mL * Vanessa Curry Ann 4 12:20:10 PM >See phone encounter 4.?Elevated alkaline phosphatase level?LAB: P-Comprehensive Metabolic Panel (CMP) (Collection Date & Time - 01/07/2024 08:50 AM)?Normal* Value Reference Range A /G Ratio 1.9 1.1-2.5 - * A lbumin 4.0 3.5-5.3 - g/dL * A lkaline Phosphatase 75 35-121 - IU/L * A LT (SGPT) 17 <5-47 - IU/L * A ST (SGOT) 24 <5-40 - IU/L * B ilirubin, Total 0.3 <0.2-1.2 - mg/dL * B UN 17 8-23 - mg/dL * C alcium 8.7 8.6-10.4 - mg/dL * C hloride 107 97-108 - mmol/L * C O2 24 22-32 - mmol/L * C reatinine 0.58 0.50-1.00 - mg/dL * G lucose 88 65-99 - mg/dL * P otassium 4.4 3.5-5.3 - mmol/L * S odium 143 135-145 - mmol/L * P rotein 6.1 6.0-8.3 - g/dL * e GFR by Creatinine 92 >59 - mL/min/1.73m2 * Vanessa Curry 4 12:20:10 PM >See phone encounter 5.?Screening, lipid?LAB: P-Lipid Panel (Collection Date & Time - 01/07/2024 08:50 AM)?Normal* Value Reference Range C holesterol / HDL Ratio 2.62 0.00-4.44 - Ratio * C holesterol 139 <200 - mg/dL * H DL Cholesterol 53 >39 - mg/dL * L DL Cholesterol (Calculation) 74 <130 - mg/d L * L DL/HDL Ratio 1.4 <3.3 - Ratio * N on-HDL Cholesterol 86 <130 - mg/dL * T riglycerides 60 <150 - mg/dL * Vanessa Curry 4 12:20:10 PM >See phone encounter 6.?Breast cancer screening by mammogram?Imaging: Mammogram (Performed Date - 01/14/2024)?benign, annual f/u* Value Reference Range r esult benign, annual f/u * Lisbeth Smith 01/07/2024 10:4 2:05 AM > NO PA NEEDED---ORDER FAXED TO Kathie Morton 01/20/2024 1:09:41 PM > Pt informed * Procedure Codes: G 2211 Complex e/m visit add on * Follow Up: 6 Months * Images: Billing Information: * Visit Code: 72247 Office Visit, Est Pt., Level 4. * Procedure Codes: G2211 Complex e/m visit add on. * Electronic signature of Lisbeth Huizar MD on 10/31/2024 at 05:18 PM EDT Sign off status: Pending * Provider: Jocelyn Huizar M.D. Date: 0 01/07/2024 Generated for Lynne sarah/Vikas/Kristyitting on: 10/31/2024 05:18 PM EDT History and Physical Notes * HPI (History of Present Illness) Category Sub-Category Detail Notes Category Not es Psychology depression Pt here to f/u o n depression with anxiety, states she is doing well on medications and does not have any concerns today Examination Category Sub-Category Detail Notes Category Not es Psychology Heart: RSR Lungs: clear to auscultatio n General Appearance: NAD Grooming : adequate Eye contact : normal Mood : pleasant
--- OUTSIDE RECORDS SUMMARY | 2024-07-08 06:45 | XMS_ITS ---
Author Organization [facility] Address [address] [place] [id number] Care Team Providers Care Machine Tool Builder Name Role Phone Vinicius Huizar Primary Care Provider Allergies No Known Allergies Results Component Value Reference Range Notes P-Vitamin D 25-Hydroxy Reviewed date:07/12/2024 10:36:09 AM Interpretation:40.6 Performing Lab: Notes/Report: Test performed by [facility] [address] [place] [address] , [address], [place] [address] Kojo Waldron MD, Silk Opener CLIA: [id number] Vitamin D 25-Hydroxy 40.6 30.0-100.0 ng/mL Interpretation of Vitamin D 25 [place]: < 20 ng/mL - Deficiency 20 - 29 ng/mL - Insufficiency 30 - 100 ng/mL - Sufficiency > 100 ng/mL - Super-therapeutic- toxicity may occur above this level. Clinical correlation required. REASON FOR VISIT 6 months Medications Medication SIG (Take, Route, Frequency, Duration) Notes Start Date End Date Status Alendronate Sodium 70 MG TAKE 1 TABLET B Y MOUTH ONCE A WEEK 30 MINUTES BEFORE THE FIRST FOOD, BEVERAGE OR MEDICINE OF THE DAY WITH PLAIN WATER; Duration: 84 Active Vitamin D-3 125 MCG (5000 UT) 1 cap(s) orally once a week 12/24/2020 Active Escitalopram Oxalate 5 MG 1 tablet Orall y once daily Active Problems Problem Type SNOMED Code ICD Code Onset Dates Problem Status W/U Status Risk Notes Problem Osteoporosis (38069904) Osteoporosis, unspecified (M81.0) Active confirmed Vital Signs Weight 137 lbs 07/08/2024 Blood pressure systolic 120 mm Hg 07/09/19 25 Blood pressure diastolic 72 mm Hg 025 Heart Rate 64 /min 07/08/2024 Height 63.50 in 07/08/2024 BMI 23.89 kg/m2 07/08/2024 Encounters Encounter Location Date Provider Diagnosis [facility] [address] [place] [id number] 07/08/2024 Vinicius Huizar Anxiety F41.9 ; Osteoporosis M81.0 ; Vitamin D deficiency E55.9 and Osteoporosis, unspecified M81.0 Assessments Encounter Date Diagnosis (ICD Code) Assessment Notes Treatment Notes Treatment Clinical Notes Section Notes 07/08/2024 Anxiety (ICD-10 - F41.9) 07/08/2024 Osteoporosis (ICD-10 - M81.0) 07/08/2024 Vitamin D deficiency (ICD-10 - E55.9) 07/08/2024 Osteoporosis, unspecified (ICD-10 - M81.0) Plan Of Treatment Medication Medication Name Sig Start Date Stop Date Notes Alendronate Sodium 70 MG TAKE 1 TABLET B Y MOUTH ONCE A WEEK 30 MINUTES BEFORE THE FIRST FOOD, BEVERAGE OR MEDICINE OF THE DAY WITH PLAIN WATER; Duration: 84 Vitamin D-3 125 MCG (5000 UT) 1 cap(s) orally once a week 12/24/2020 Escitalopram Oxalate 5 MG 1 tablet Orally once daily Next Appt Details Follow Up: 6 Months, Reason: Progress Notes * SRAVAN RebaDOB:1945 (79 yo F)Acc No.[id number]:07/08/2024 Progress Notes Patient: Reba HUA Provider: Jocelyn Huizar M.D. :1945 A ge:78 Y S ex:Female Date:07/08/2024 Address:[address] [place] [address] [place], [place] Subjective: * Chief Complaints: * 1 . 6 months. * HPI: P sychology: 78 year old female presents with c/o Anxiety P t here for 6 mo f/u. Pt states she is doing well on Escitalopram. * ROS: D ERMATOLOGY: no R laura. n o H linh. G ASTROENTEROLOGY: no N ausea. n o V omiting. U ROLOGY: no D ifficulty urinating. n o B lood in urine. * Medical History: E sophageal Reflux, Hiatal Hernia, Dr. Lutz @ , Thyroid Nodule, US done 08/2008, Esophageal Stricture, Vitamin D deficiency, Osteoporosis. * Surgical History: G astric Bypass 1984, [...] OF THE DAY WITH PLAIN WATER , Taking Escitalopram Oxalate 5 MG Tablet 1 tablet Orally once daily , Medication List reviewed and reconciled with the patient * Allergies: N .K.D.A. Objective: * Vitals: W t:137, Temp:97.8, BP:120/72, HR:64, Nurse:kk, Ht: 63.50, BMI:23.89. * Examination: P sychology: General Appearance: N AD , NAD. G rooming : a dequate , adequate. E ye contact : n regina , normal. M ood : p leasant , pleasant. H eart: R SR , RSR. L ungs: c lear to auscultation , clear to auscultation. ? Assessment: * Assessment: 1. A nxiety - F41.9 (Primary) 2 . O steoporosis - M81.0 3 .?Vitamin D deficiency - E55.9 4 . O steoporosis, unspecified - M81.0 ? Plan: * Treatment: 2. O steoporosis Refill Alendronate Sodium Tablet, 70 MG, TAKE 1 TABLET BY MOUTH ONCE A WEEK 30 MINUTES BEFORE THE FIRST FOOD, BEVERAGE OR MEDICINE OF THE DAY WITH PLAIN WATER, 84, 12 Tablet, Refills 2. 3. V itamin D deficiency Continue Vitamin D-3 Tablet, 125 MCG (5000 UT), 1 cap(s), orally, once a week. L AB: P-Vitamin D 25-Hydroxy (Collection Date & Time - 07/08/2024 09:57 AM) 4 0.6 Value Reference Range V itamin D 25-Hydroxy 40.6 30.0-100.0 - ng/mL * Dianne Grigsby 07/12/2024 10:36 :04 AM >See phone encounter * Procedure Codes: G 2211 Complex e/m visit add on, 3074F SYST BP LT 130 MM HG, 3078F DIAST BP < 80 MM HG * Follow Up: 6 Months * Images: Billing Information: * Visit Code: 87541 Office Visit, Est Pt., Level 4. * Procedure Codes: G2211 Complex e/m visit add on. 3074F SYST BP LT 130 MM HG. 3078F DIAST BP < 80 MM HG. * Electronic signature of Lisbeth Huizar MD on 10/31/2024 at 05:18 PM EDT Sign off status: Pending * Provider: Jocelyn Huizar M.D. Date: 0 07/08/2024 Generated for Lynne sarah/Vikas/Kristyitting on: 0 10/31/2024 05:18 PM EDT History and Physical Notes * HPI (History of Present Illness) Category Sub-Category Detail Notes Category Not es Psychology Anxiety Pt here for 6 mo f/u. Pt states she is doing well on Escitalopram Examination Category Sub-Category Detail Notes Category Not es Psychology Heart: RSR , RSR Lungs: clear to auscultatio n , clear to auscultation General Appearance: NAD , NAD Grooming : adequate , adequate Eye contact : normal , normal Mood : pleasant , pleasant
[2024-10-31 17:10] VITALS: BP 148/76; PULSE 78; RESP 18; TEMP 36.6; O2SAT 97; BMI 24.2
--- OUTSIDE RECORDS SUMMARY | 2024-10-31 17:18 | XMS_ITS | Patient Health Record ---
Author Organization [facility] Address [address] [place] [id number] Care Team Providers Care Orthotic/Prosthetic Clinician Name Role Phone Vinicius Huizar Primary Care Provider Ros Shelley Unavailable [phone] Allergies No Known Allergies Results Component Value Reference Range Notes P-Vitamin D 25-Hydroxy Reviewed date:07/12/2024 10:36:09 AM Interpretation:40.6 Performing Lab: Notes/Report: Test performed by [facility] [address] [place], [place] [address] , [address], [place] [address] Kojo Waldron MD, Cuff Presser CLIA: [id number] Vitamin D 25-Hydroxy 40.6 30.0-100.0 ng/mL Interpretation of Vitamin D 25 OH: < 20 ng/mL - Deficiency 20 - 29 ng/mL - Insufficiency 30 - 100 ng/mL - Sufficiency > 100 ng/mL - Super-therapeutic- toxicity may occur above this level. Clinical correlation required. P-Vitamin B12 Reviewed date:01/08/2024 12:20:18 PM Interpretation:1439 Performing Lab: Notes/Report: Test performed by [facility] [address] [place], [place] [address] , [address], [place] [address] Kojo Waldron MD, Cuff Presser CLIA: [id number] Vitamin B12 8675 682-5102 pg/mL P-Comprehensive Metabolic Pa viktoriya (CMP) Reviewed date:01/08/2024 12:20:18 PM Interpretation:Normal Performing Lab: Notes/Report: Test performed by [facility] [address] [place] [address] , [place] [address] Kojo Waldron MD, Cuff Presser CLIA: [id number] Sodium 143 135-145 mmol/L Potassium 4.4 3.5-5.3 [...] Interpretation:Normal Performing Lab: Notes/Report: Test performed by [facility] [address] [place] [address] , [facility], [place] [address] Kojo Waldron MD, Cuff Presser CLIA: [id number] Cholesterol 139 <200 mg/dL Triglycerides 60 <150 [...] Interpretation:31.3 Performing Lab: Notes/Report: Test performed by [facility] [address] [place] [address] , [place] [address] Kojo Waldron MD, Cuff Presser CLIA: [id number] Vitamin D 25-Hydroxy 31.3 30.0-100.0 ng/mL Interpretation of Vitamin D 25 OH: < 20 ng/mL - Deficiency 20 - 29 ng/mL - Insufficiency 30 - 100 ng/mL - Sufficiency > 100 ng/mL - Super-therapeutic- toxicity may occur above this level. Clinical correlation required. Mammogram Reviewed date:01/20/2024 01:10:11 PM Interpretation:benign, annual f/u Performing Lab: Notes/Report: benign, annual f/u result benign, annual f/u Medications Medication SIG (Take, Route, Frequency, Duration) [...] 1 tablet Orall y once daily Active Immunizations Vaccine Route Administration Date Status Comme nts COVID 19 Moderna Unknown 05/30/2020 Administered COVID 19 Moderna Unknown 06/27/2020 Administered COVID 19 Moderna Unknown 03/04/2021 Administered Fluzone High Dose (65yr and older) IM Intramuscular 12/25/2011 Administered Fluzone High Dose (65yr and older) IM Intramuscular 02/08/2014 Administered Fluzone High Dose (65yr and older) IM Intramuscular 02/16/2015 Administered Fluzone High Dose (65yr and older) IM Intramuscular 01/28/2016 Administered Fluzone High Dose (65yr and older) IM Intramuscular 01/15/2017 Administered Fluzone High Dose (65yr and older) IM Intramuscular 01/12/2018 Administered Fluzone High Dose (65yr and older) IM Intramuscular 12/28/2018 Administered Fluzone High Dose (65yr and older) IM Intramuscular 01/18/2020 Administered Fluzone High Dose (65yr and older) IM Intramuscular 01/17/2021 Administered Fluzone High Dose (65yr and older) IM Intramuscular 01/23/2022 Administered Fluzone PF Quad (6-35 months) Unknown 01/03/2023 Administered PNEUMOVAX 23 VACCINE IM Intramuscular 01/15/2017 Administe red Prevnar (PCV13) IM Intramuscular 06/01/2015 Administered Prevnar (PCV20) IM Intramuscular 01/23/2022 Administered Shingrix Unknown 03/30/2020 Administered Tetanus Tdap-Adacel (over 7yrs) IM Intramuscular 01/15/2017 Administered xFlu shot-36 months and older IM Intramuscular 12/29/2008 Administered xFlu shot-36 months and older IM Intramuscular 01/23/2011 Administered xFluzone (6mos and older)-trivalent IM Intramuscular 03/15/2010 Administered xFluzone (6mos and older)-trivalent IM Intramuscular 04/25/2013 Administered Problems Problem Type SNOMED Code ICD Code Onset Dates Problem Status W/U Status Risk Notes Problem Hiatal hernia (66444421) Hiatal hernia (553.3) Active confirmed Problem Vitamin D deficiency (47847717) Vitamin D deficiency (E55.9) Active confirmed Problem Anxiety (02925317) Anxiety (F41.9) Active confirmed Problem Vitamin B12 deficiency (non anemic) (87786527) Vitamin B 12 deficiency (E53.8) Active confirmed Problem Adjustment disorder with mixed anxiety and depressed mood (635987833) Adjustment disorder with mixed anxiety and depressed mood (F43.23) Active confirmed Problem Mammography abnormal (252452713) Abnormal mammogram of left breast (R92.8) Active confirmed Problem Osteoporosis (77847645) Osteoporosis (M81.0) Active confirmed Problem Osteoporosis (34503695) Osteoporosis, unspecified (M81.0) Active confirmed Problem Arthritis of left knee (179674889592920 4) Arthritis of left knee (M17.12) Active confirmed Vital Signs Heart Rate 64 /min 07/08/2024 Blood pressure diastolic 72 mm Hg 07/08/2024 Height 63.50 in 07/08/2024 Blood pressure systolic 120 mm Hg 07/08/2024 Weight 137 lbs 07/08/2024 BMI 23.89 kg/m2 07/08/2024 Encounters Encounter Location Date Provider [facility] [address] [place] [id number] 11/05/2023 Ros Shelley Local infection of t he skin and subcutaneous tissue, unspecified L08.9 and Skin abrasion T14.8XXA [facility] [address] [place] [id number] 01/07/2024 Vinicius [place] Anxiety F41.9 ; Ghada min D deficiency E55.9 ; Vitamin B 12 deficiency E53.8 ; Osteoporosis M81.0 ; Elevated alkaline phosphatase level R74.8 ; Screening, lipid Z13.220 and Breast cancer screening by mammogram Z12.31 [facility] [address] [place] [address] [place] [id number] 07/08/2024 Vinicius [place] Anxiety F41.9 ; Osteoporosis M81.0 ; Vitamin D deficiency E55.9 and Osteoporosis, unspecified M81.0 [facility] [address] [place] [id number] 01/08/2024 Vinicius [place] [facility] [address] [place] [address] [place] [id number] 07/12/2024 Vinicius [place] Assessments Encounter Date Diagnosis (ICD Code) Assessment Notes Treatment Notes Treatment Clinical Notes Section Notes 11/05/2023 Local infection of the skin and subcutaneous tissue, unspecified (ICD-10 - L08.9) 11/05/2023 Skin abrasion (ICD-10 - T14.8XXA) 01/07/2024 Vitamin D deficiency (ICD-10 - E55.9) 01/07/2024 Anxiety (ICD-10 - F41.9) 07/08/2024 Anxiety (ICD-10 - F41.9) 07/08/2024 Osteoporosis (ICD-10 - M81.0) 07/08/2024 Vitamin D deficiency (ICD-10 - E55.9) 01/07/2024 Vitamin B 12 deficiency (ICD-10 - E53.8) 01/07/2024 Osteoporosis (ICD-10 - M81.0) 07/08/2024 Osteoporosis, unspecified (ICD-10 - M81.0) 01/07/2024 Elevated alkaline phosphatase level (ICD-10 - R74.8) 01/07/2024 Screening, lipid (ICD-10 - Z13.220) 01/07/2024 Breast cancer screening by mammogram (ICD-10 - Z12.31) Plan Of Treatment No Information Insurance Providers Payer Name Payer Address Payer Phone Subscriber Number Group Number Insured Name Patient Relationship to Insured Coverage Start Date Coverage End Date MEDICARE PART B [address] [address] [place] [address] [id number] Reba Babin Self - patient is the insured [employer] [address] [address] [place], [place] [id number] Reba Babin Self - patient is the insured Medications Administered Medication Instructions Date of Administration Dosage Notes Depo- Medrol 40 mg/ml 09/05/2021 1.5 mL Medical (General) History Medical History History ICD Code Esophageal Reflux Hiatal Hernia, Dr. Lutz @ [facility] Thyroid Nodule, US done 08/2008 Esophageal Stricture Vitamin D deficiency osteoporosis Surgical History Surgery Date(Month/Year) Gastric Bypass 1985 Bladder surgery 1995 LT knee surgery 2000 Cholecystectomy 2002 Bilateral Foot 1984 LT Wrist 1998 RT Wrist 1998 EGD 2011, 2015 Colonoscopy 2014 Hernia 07/04/2014 [facility]- Feeding Tube 09/2014 EGD 01/2021 Esophageal dilitation 05/2021 Esophageal dilitation October 2023 Hospitalization History Reason Date(Month/Year)
--- OUTSIDE RECORDS SUMMARY | 2024-10-31 17:19 | XMS_ITS | Data Portability ---
Author Organization [facility] ADMIN Address [address] [place] [id number] Assessment No assessment recorded. Plan of Treatment Reminders Order Date Submit Date Provider Last Modified By Organization Details Last Modified Time Details Appointments None recor ded. Lab CBC w/ auto diff 2023 024 LLEWELLYN [facility], [address], [address], [place], [address], 4 08:38:25 CMP, serum or plasm a 2023 024 L[facility]WELLYN [facility], [address], [address], [place], [address], 4 08:38:26 preal bumin , serum 2023 024 LLEWELLYN [facility], [address], [address], [place], [address], 4 08:38:26 Referral gastr theresa bennett ist refer ral - Per Dr. Buck , reque st EUS to rule out CT scan resul ts as well as esoph ageal dysmo tilit y. 2023 024 [email or web address] [facility], [address], [address], [place], [address], 4 10:04:41 Procedures None recor ded. Surgeries esoph agoga strod uoden oscop y (SURG ) 2023 024 Tru Leonardo MD, [address], [address], [place], [address], 4 09:18:[address], abdom en + pelvi s, w/ contr ast - oral and IV contr ast 2023 024 [email or web address] [facility] [address], [place], [address], 4 13:31:56 XR, abdom en + RF, upper gastr ointe kevin l tract , w/ contr ast PO 2023 024 [email or web address] [facility] [address], [place], [address], 4 15:01:05 Medication Orders Levsi n/SL 0.125 mg subli ngual table t 2023 024 [facility], [address] [place] [address], [address], 4 10:44:08 Ariadna n 5 mg table t 2023 024 [facility], [address] [place] [address], [address], 4 11:06:13 ondan setro n 4 mg disin tegra ting table t 2023 024 [facility], [address] [place] [address], [address], 4 10:44:09 Levsi n/SL 0.125 mg subli ngual table t 2023 024 [facility], [address], [address], 4 10:25:53 Patient TargetsNo targets recorded. Patient InstructionsNo instructions recorded. Reason for Referral Rehab Trainer Referral for Dysphagia Per Dr. Buck, request EUS to rule out CT scan results as well as esophageal dysmotility. Referring Physician: Maxi Shen, Family Medicine, Encounter Date: 10/21/2023 Results Created Date Observation Date Name Description Value Unit Range Abnormal Flag Note LastModifiedBy Organization Detail LastModifiedTime 10/07/19 24 10/08/2023 CBC WITH DIFFE RENTI AL/PL ATELE T WBC 6.0 x10e3 /uL 3.4-10 .8 Not Available [facility] ([facility]) [address] [place], [address], 10/08/2023 08:38:25 10/07/19 24 10/08/2023 CBC WITH DIFFE RENTI AL/PL ATELE T RBC 4.80 x10e6 /uL 3.77-5 .28 Not Available [facility] ([facility]) [address] [place], [address], 10/08/2023 08:38:25 10/07/19 24 10/08/2023 CBC WITH DIFFE RENTI AL/PL ATELE T hemoglobin 14.7 g/dL 11.1-1 5.9 Not Available [facility] ([facility]) [address] [place], [address], 10/08/2023 08:38:25 10/07/1910/08/2023 CBC WITH DIFFE RENTI AL/PL ATELE T hematocrit 45.8 % 34.0-4 6.6 Not Available [facility] ([facility]) [address] [place], [address], 10/08/2023 08:38:25 10/07/1910/08/2023 CBC WITH DIFFE RENTI AL/PL ATELE T MCV 95 fL 79-97 Not Available [facility] ([facility]) [address] [place], [address], 10/08/2023 08:38:25 10/07/19 24 10/08/2023 CBC WITH DIFFE RENTI AL/PL ATELE T MCH 30.6 pg 26.6-3 3.0 Not Available [facility] ([facility]) [address] [facility], [place], [address], 10/08/2023 08:38:25 10/07/19 24 10/08/2023 CBC WITH DIFFE RENTI AL/PL ATELE T MCHC 32.1 g/dL 31.5-3 5.7 Not Available [facility] ([facility]) [address] [facility], [place], [address], 10/08/2023 08:38:25 10/07/19 24 10/08/2023 CBC WITH DIFFE RENTI AL/PL ATELE T RDW 11.9 % 11.7-1 5.4 Not Available [facility] ([facility]) [address] [facility], [place], [address], 10/08/2023 08:38:25 10/07/19 24 10/08/2023 CBC WITH DIFFE RENTI AL/PL ATELE T platelets 242 x10e3 /uL 150-45 0 Not Available [facility] ([facility]) [address] [facility], [place], [address], 10/08/2023 08:38:25 10/07/19 24 10/08/2023 CBC WITH DIFFE RENTI AL/PL ATELE T neutrophils 62 % not estab. Not Available [facility] ([facility]) [address] [facility], [place], [address], 10/08/2023 08:38:25 10/07/19 24 10/08/2023 CBC WITH DIFFE RENTI AL/PL ATELE T lymphs 28 % not estab. Not Available [facility] ([facility]) [address] [place], [address], 10/08/2023 08:38:25 10/07/19 24 10/08/2023 CBC WITH DIFFE RENTI AL/PL ATELE T monocytes 8 % not estab. Not Available [facility] ([facility]) [address] [place], [address], 10/08/2023 08:38:25 10/07/19 24 10/08/2023 CBC WITH DIFFE RENTI AL/PL ATELE T eos 1 % not estab. Not Available [facility] ([facility]) [address] [place], [address], 10/08/2023 08:38:25 10/07/19 24 10/08/2023 CBC WITH DIFFE RENTI AL/PL ATELE T basos 1 % not estab. Not Available [facility] ([facility]) [address] [place], [address], 10/08/2023 08:38:25 10/07/19 24 10/08/2023 CBC WITH DIFFE RENTI AL/PL ATELE T immature cells HEEL SPRAYER FIRST Not Available [facility] ([facility]) [address] [place], [address], 10/08/2023 08:38:25 10/07/19 24 10/08/2023 CBC WITH DIFFE RENTI AL/PL ATELE T neutrophils (absolute) 3.8 x10e3 /uL 1.4-7. 0 Not Available [facility] ([facility]) [address] [place], [address], 10/08/2023 08:38:25 10/07/19 24 10/08/2023 CBC WITH DIFFE RENTI AL/PL ATELE T lymphs (absolute) 1.7 x10e3 /uL 0.7-3. 1 Not Available [facility] ([facility]) [address] [place], [address], 10/08/2023 08:38:25 10/07/19 24 10/08/2023 CBC WITH DIFFE RENTI AL/PL ATELE T monocytes(ab solute) 0.5 x10e3 /uL 0.1-0. 9 Not Available [facility] ([facility]) [address] [facility], [place], [address], 10/08/2023 08:38:25 10/07/19 24 10/08/2023 CBC WITH DIFFE RENTI AL/PL ATELE T eos (absolute) 0.1 x10e3 /uL 0.0-0. 4 Not Available [facility] ([facility]) [address] [facility], [place], [address], 10/08/2023 08:38:25 10/07/1910/08/2023 CBC WITH DIFFE RENTI AL/PL ATELE T baso (absolute) 0.0 x10e3 /uL 0.0-0. 2 Not Available [facility] ([facility]) [address] [facility], [place], [address], 10/08/2023 08:38:25 10/07/19 24 10/08/2023 CBC WITH DIFFE RENTI AL/PL ATELE T immature granulocytes 0 % not estab. Not Available [facility] ([facility]) [address] [facility], [place], [address], 10/08/2023 08:38:25 10/07/19 24 10/08/2023 CBC WITH DIFFE RENTI AL/PL ATELE T immature grans (abs) 0.0 x10e3 /uL 0.0-0. 1 Not Available [facility] ([facility]) [address] [facility], [place], [address], 10/08/2023 08:38:25 10/07/19 24 10/08/2023 CBC WITH DIFFE RENTI AL/PL ATELE T NRBC HEEL SPRAYER FIRST Not Available [facility] ([facility]) [address] [facility], [place], [address], 10/08/2023 08:38:25 10/07/19 24 10/08/2023 CBC WITH DIFFE RENTI AL/PL SYLVESTER Fuentes hematology comments: HEEL SPRAYER FIRST Not Available [facility] ([facility]) [address] [facility], [place], [address], 10/08/2023 08:38:25 10/07/19 24 10/08/2023 COMP. METAB OLIC PANEL (14) glucose 96 mg/dL 70-99 Not Available [facility] ([facility]) [address] [facility] [place], [address], 10/08/2023 08:38:26 10/07/19 24 10/08/2023 COMP. METAB OLIC PANEL (14) BUN 15 mg/dL 8-27 Not Available [facility] ([facility]) [address] [place], [address], 10/08/2023 08:38:26 10/07/19 24 10/08/2023 COMP. METAB OLIC PANEL (14) creatinine 0.75 mg/dL 0.57-1 .00 Not Available [facility] ([facility]) [address] [place], [address], 10/08/2023 08:38:26 10/07/19 24 10/08/2023 COMP. METAB OLIC PANEL (14) eGFR 81 mL/mi n/1.7 3 >59 Not Available [facility] ([facility]) [address] [place], [address], 10/08/2023 08:38:26 10/07/19 24 10/08/2023 COMP. METAB OLIC PANEL (14) BUN/creatini ne ratio 20 12- Not Available [facility] ([facility]) [address] [place], [address], 10/08/2023 08:38:26 10/07/19 24 10/08/2023 COMP. METAB OLIC PANEL (14) sodium 142 mmol/ L 134-14 4 Not Available [facility] ([facility]) [address] [place], [address], 10/08/2023 08:38:26 10/07/19 24 10/08/2023 COMP. METAB OLIC PANEL (14) potassium 5.0 mmol/ L 3.5-5. 2 Not Available [facility] ([facility]) [address] [place], [address], 10/08/2023 08:38:26 10/07/19 24 10/08/2023 COMP. METAB OLIC PANEL (14) chloride 105 mmol/ L 96-106 Not Available [facility] ([facility]) [address] [place], [address], 10/08/2023 08:38:26 10/07/19 24 10/08/2023 COMP. METAB OLIC PANEL (14) carbon dioxide, total 25 mmol/ L 20-29 Not Available [facility] ([facility] [address] [facility] [place], [address], 10/08/2023 08:38:26 10/07/19 24 10/08/2023 COMP. METAB OLIC PANEL (14) calcium 9.4 mg/dL 8.7-10 .3 Not Available [facility] ([facility]) [address] [place], [address], 10/08/2023 08:38:26 10/07/19 24 10/08/2023 COMP. METAB OLIC PANEL (14) protein, total 6.6 g/dL 6.0-8. 5 Not Available [facility] ([facility]) [address] [place], [address], 10/08/2023 08:38:26 10/07/19 24 10/08/2023 COMP. METAB OLIC PANEL (14) albumin 4.1 g/dL 3.8-4. 8 Not Available [facility] ([facility] [address] [facility] [place], [address], 10/08/2023 08:38:26 10/07/19 24 10/08/2023 COMP. METAB OLIC PANEL (14) globulin, total 2.5 g/dL 1.5-4. 5 Not Available [facility] ([facility]) [address] [facility] [place], [address], 10/08/2023 08:38:26 10/07/19 24 10/08/2023 COMP. METAB OLIC PANEL (14) A/G ratio 1.6 Not Available [facility] ([facility]) [address] [facility] [place], [address], 10/08/2023 08:38:26 10/07/19 24 10/08/2023 COMP. METAB OLIC PANEL (14) bilirubin, total 0.4 mg/dL 0.0-1. 2 Not Available [facility] ([facility]) [address] [facility] [place], [address], 10/08/2023 08:38:26 10/07/19 24 10/08/2023 COMP. METAB OLIC PANEL (14) alkaline phosphatase 86 IU/L 44-121 Not Available [facility] ([facility]) [address] [place], [address], 10/08/2023 08:38:26 10/07/19 24 10/08/2023 COMP. METAB OLIC PANEL (14) AST (SGOT) 25 IU/L 0-40 Not Available [facility] ([facility]) [address] [place], [address], 10/08/2023 08:38:26 10/07/19 24 10/08/2023 COMP. METAB OLIC PANEL (14) ALT (SGPT) 20 IU/L 0-32 Not Available [facility] ([facility]) [address] [place], [address], 10/08/2023 08:38:26 10/07/19 24 10/08/2023 PREAL BUMIN prealbumin 13 mg/dL 9-32 Not Available [facility] ([facility]) [address], [place], [address], 10/08/2023 08:38:26 09/30/19 24 09/30/2023 XR, abdom en + RF, upper gastr ointe kevin l tract , w/ air, w/ contr ast [facility] [address] [place] [address] Phone: Fax: Name: REBA HINSON Exam Date: 09/30/19 : [birth year] Age 78 years Gender : F Access ion: [id number] Physic annie: SIZEMO RE, EDWARD Facili ty: [facility] Facili ty HSV: Outpat ient Exam: UGI W/AIR W/KUB [facility] histor y: Dyspha tanesha Findin gs: Fluoro scopic imagin g was obtain ed while the patien t swallo wed barium . There is esopha geal dysmot ility. There is narrow ing of the distal esopha aakash at the level of the GE juncti on. An extrin sic mass is not exclud ed. There are promin ent gastri c and duoden al folds. There is a large duoden al divert iculum . Impres winsome: 1. Distal esopha geal narrow ing at the level of the GE juncti on. Correl ate with recent endosc opic result s. An extrin sic masses not exclud ed and CT of the abdome n is recomm ended. 2. Promin ent duoden al and gastri c folds. 3. Large duoden al divert iculum . Films review ed and interp reted by Dr. Stephany Montes. Transc ribed by Tyler Traylor PAC. Dictat ed By: STEPHANY MONTES Transc ribed By: Stephany Montes Transc ribed On: 09/30/19 10:57 AM Electr onical ly signed by: STEPHANY MONTES 09/30/19 Thank you for referr REBA Mu[facility] to [facility] Legall y authen ticate d by STEPHANY Douglas 09-29 10:57: 06 CC'ed Logic: Orderi ng Provid er: SIZEMO RE EDWARD Attend ing Provid er: SIZEMO RE EDWARD Admitt ing Provid er: SIZEMO RE EDWARD [email or web address] [facility] [address] [facility], [place], [address], 10/21/2023 10:29:24 10/19/19 24 10/19/2023 CT, abdom en + pelvi s, w/ contr ast [facility] [address] [place] [address] Phone: Fax: Name: REBA HINSON Exam Date: 024 : [birth year] Age 78 years Gender : F Access ion: [id number] Physic annie: TRU LEONARDO Facili ty: [facility] Facili ty HSV: Outpat ient Exam: CT ABD PEL W/ (IV ^ ORAL) EXAM: CT ABDOME N AND PELVIS WITHOU T IV CONTRA ST INDICA TION: Abdomi nal pain TECHNI QUE: The patien t was inject ed with IV contra st. Oral contra st was admini stered . Axial images were obtain ed from the lung bases to the pubic symphy sis by comput ed tomogr aphy. This study was perfor med with techni ques to keep radiat ion doses as low as reason ably achiev able, (ALARA ). Indivi dualiz ed dose reduct ion techni ques using automa liset exposu re contro l or adjust ment of mA and/or kV accord ing to the patien t size were employ ed. COMPAR CHAN: December 06, 2014 FINDIN GS: LUNG BASES: No focal pneumo miriam. Small slidin g-type hiatal hernia .. LIVER: Hepati c steato sis GALLBL ADDER/ BILIAR Y TREE: Status postch olecys tectom y SPLEEN : No spleno megaly . ADRENA L GLANDS : Unrema rkable . PANCRE : Grossl y unrema rkable KIDNEY S: No stones . No Hydron ephros is. BOWEL: Increa sed nodula r thicke phill of the first and second segmen ts of the duoden um. No small bowel dilata tion. No coloni c dilati on. PERITO NEUM/R ETROPE RITONE UM: No free fluid. No free air. LYMPH NODES: No retrop eriton eal adenop athy. No mesent bro adenop athy. BLADDE R: Unrema rkable REPROD UCTIVE ORGANS : Hyster ectomy VASCUL AR: No aortic aneury sm. No iliac aneury sm. BONES: No suspic ious osseou s lesion . Degene rative change s of the spine. IMPRES WINSOME: Signif icant nodula r thicke phill of the first and second segmen ts of the duoden um, increa sed from prior study. Differ ential diagno ses includ e chroni c peptic ulcers diseas e versus infect ious duoden itis versus duoden al malign feliciano or lympho ma. Recomm end correl ation with upper GI endosc opy with possib le biopsy . Legall y authen ticate d by JUNAID TREVINO 10-18 12:08: 34 Dictat ed By: Jinny Angulo Transc ribed By: Jinny Scanlon Transc ribed On: 12:08 PM Electr onical ly signed by: Jinny Angulo Thank you for referr REBA Muñiz to [facility]. Legall y authen ticate d by JUNAID Banks IVO 10-18 12:08: 34 CC'ed Logic: Orderi ng Provid er: ROBB OTT Attend ing Provid er: ROBB OTT Referr ing Provid er: ROBB OTT Admitt ing Provid er: ROBB OTT [facility] [address] [facility], [place], [address], 11/06/2023 13:31:56 Result Notes Documentation Provider Name and Address Organization Details Recorded Time Xr, Abdomen + Rf, Upper Gastrointestinal Tract, W/ Air, W/ Contrast Po : [place] [id number] Name: REBA HINSON Exam Date: 09/30/2023 : 1945 Age 78 years Gender: F Physician: MAXI SHEN Facility: [facility] Facility HSV: Outpatient Exam: UGI W/AIR W/KUB Upper GI Clinical history: Dysphagia Findings: Fluoroscopic imaging was obtained while the patient swallowed barium. There is esophageal dysmotility. There is narrowing of the distal esophagus at the level of the GE junction. An extrinsic mass is not excluded. There are prominent gastric and duodenal folds. There is a large duodenal diverticulum. Impression: 1. Distal esophageal narrowing at the level of the GE junction. Correlate with recent endoscopic results. An extrinsic masses not excluded and CT of the abdomen is recommended. 2. Prominent duodenal and gastric folds. 3. Large duodenal diverticulum. Films reviewed and interpreted by Dr. Stephany Montes. Transcribed by JEREMY Funes. Dictated By: STEPHANY MONTES Transcribed By: Stephany Montes Transcribed On: 09/30/2023 10:57 AM Electronically signed by: STEPHNAY MONTES 09/30/2023 Thank you for referring [facility] to [facility]. Legally authenticated by POPE STEPHANY Cole 2023-09-30 10:57:06 CC'ed Logic: Ordering Provider: ALAN HULL Attending Provider: ALAN HULL Admitting Provider: ALAN Shen, DNP, OUTSIDE SALESMAN, HEEL SPRAYER FIRST-C [address] [place] [address], [id number], [place] - [place] - [place] & [place] 10/21/2023 10:29:24 Ct, Abdomen + Pelvis, W/ Contrast : [address] [address] Name: REBA HINSON Exam Date: 10/19/2023 : 1945 Age 78 years Gender: F Physician: TRU LEONARDO Facility: [facility] Facility HSV: Outpatient Exam: CT ABD PEL W/ (IV ^ ORAL) EXAM: CT ABDOMEN AND PELVIS WITHOUT IV CONTRAST INDICATION: Abdominal pain TECHNIQUE: The patient was injected with IV contrast. Oral contrast was administered. Axial images were obtained from the lung bases to the pubic symphysis by computed tomography. This study was performed with techniques to keep radiation doses as low as reasonably achievable, (ALARA). Individualized dose reduction techniques using automated exposure control or adjustment of mA and/or kV according to the patient size were employed. COMPARISON: December 06, 2014 FINDINGS: LUNG BASES: No focal pneumonia. Small sliding-type hiatal hernia.. LIVER: Hepatic steatosis GALLBLADDER/BILIARY TREE: Status postcholecystectomy SPLEEN: No splenomegaly. ADRENAL GLANDS: Unremarkable. PANCREAS: Grossly unremarkable KIDNEYS: No stones. No Hydronephrosis. BOWEL: Increased nodular thickening of the first and second segments of the duodenum. No small bowel dilatation. No colonic dilation. PERITONEUM/RETROPERITONEUM: No free fluid. No free air. LYMPH NODES: No retroperitoneal adenopathy. No mesenteric adenopathy. BLADDER: Unremarkable REPRODUCTIVE ORGANS: Hysterectomy VASCULAR: No aortic aneurysm. No iliac aneurysm. BONES: No suspicious osseous lesion. Degenerative changes of the spine. IMPRESSION: Significant nodular thickening of the first and second segments of the duodenum, increased from prior study. Differential diagnoses include chronic peptic ulcers disease versus infectious duodenitis versus duodenal malignancy or lymphoma. Recommend correlation with upper GI endoscopy with possible biopsy. Legally authenticated by MELANIA TREVINO 2023-10-19 12:08:34 Dictated By: Jinny Angulo Transcribed By: Jinny Scanlon Transcribed On: 10/19/2023 12:08 PM Electronically signed by: Jinny Angulo 10/19/2023 Thank you for referring [facility] to [facility]. Legally authenticated by MELANIA TREVINO 2023-10-19 12:08:34 CC'ed Logic: Ordering Provider: ROBB OTT Attending Provider: ROBB OTT Referring Provider: ROBB OTT Admitting Provider: ROBB fontana, [facility] 11/06/2023 13:31:56 Problems Name Problem SNOMED Code Status Onset Date Resolution Date Notes Provider Name and Address Organization Details Recorded Time Osteoporosis 56044836 Active 2023 Maxi Shen DNP, OUTSIDE SALESMAN, HEEL SPRAYER FIRST-C [address], [place], [place], [address] [place] [address] , [place] - [facility] - [place] & [place] 4 10:05:04 Increased blood pressure 98178307 Active 2023 Maxi Shen DNP, OUTSIDE SALESMAN, HEEL SPRAYER FIRST-C [address], [place], [place], [address] [place] [address] , [place] - [facility] - [place] & [place] 4 10:05:16 Anxiety 42665274 Active 2023 Maxi Shen DNP, OUTSIDE SALESMAN, HEEL SPRAYER FIRST-C [address], [place], [place], [address] [place] [address] , [place] - [facility] - [place] & [place] 4 10:09:01 Depressive disorder 26629646 Active 2023 Maxi Shen DNP, OUTSIDE SALESMAN, HEEL SPRAYER FIRST-[facility] [address], [place], [place], [address] [place] [address] , [place] - [facility] - [place] & [place] 4 10:09:05 Dysphagia 31808518 Active 2023 Maxi Shen DNP, OUTSIDE SALESMAN, HEEL SPRAYER FIRST-C [address], [place], [place], [address] [place] [address] , [place] - [facility] - [place] & [place] 4 10:14:45 Vomiting 896632893 Active 2023 Maxi Shen DNP, OUTSIDE SALESMAN, HEEL SPRAYER FIRST-C [address], [place], [place], [address] [place] [address] , [place] - [facility] - [place] & [place] 4 10:26:14 Difficulty swallowing fluid 463159322 Active 2023 Maxi Shen DNP, OUTSIDE SALESMAN, HEEL SPRAYER FIRST-C [address], [place], [address] [place] [address] , [place] - [facility] - [place] & [place] 4 10:27:04 Difficulty swallowing food 257442203 Active 2023 Maxi Shen DNP, APRN, HEEL SPRAYER FIRST-C [address], [place], [place], [address] [place] [address] , [place] - [facility] & [place] 4 10:27:17 Nausea 388486626 Active 2023 Maxi Shen DNP, APRN, HEEL SPRAYER FIRST-C [address], [place] [address] , [place] - [facility] & [place] 4 10:42:49 Hiatal hernia 78499106 Active 2023 Maxi Shen DNP, APRN, HEEL SPRAYER FIRST-C [address], [place] [address] , [place] - [facility] & [place] 4 10:42:55 Weight loss 85537354 Active 2023 Maxi Shen DNP, APRN, HEEL SPRAYER FIRST-C [address], [place] [address] , [place] - [facility] & [place] 4 10:45:20 Problem Notes None recorded. Procedures Surgical History Date Name Laterality Status Provider Name and Address Organization Details Recorded Time fundoplication completed Claudia Schuster Y - [facility] & [place] 09/02/2023 10:00:09 Gastric bypass for obesity completed Claudia JAMIL - [facility] & [place] 09/02/2023 10:00:27 procedure on wrist completed Maxi Shen DNP, APRN, HEEL SPRAYER FIRST-C [address], [place], [place], [address] [place] [address], [place] - [facility] & [place] 09/02/2023 10:10:52 procedure on foot completed Maxi Shen DNP, APRN, HEEL SPRAYER FIRST-C [address], [place] [address], [place] - [facility] & [place] 09/02/2023 10:10:25 Hysterectomy completed Maxi Shen DNP, APRN, HEEL SPRAYER FIRST-C [address], [place], [address], [place] - [facility] - [place] & [place] 09/02/2023 10:10:02 EGD completed Anat Marquez MD - MOLD LAMINATOR T [facility] & [place] 10/07/2023 10:56:54 Imaging Results None recorded. Procedure Notes None recorded. Medical Equipment None Reported. Allergies No known drug allergies Medications Name Sig Start Date Stop Date Status Note LastModified by Organization Details LastModified Time alendronate 70 mg tablet TAKE 1 TABLET BY MOUTH ONCE A WEEK 30 MINUTES BEFORE FIRST FOOD, BEVERAGE OR MEDICINE OF THE DAY WITH PLAIN WATER active Not Available Not Available No t Available tramadol 50 mg tablet TAKE 1 TABLET BY MOUTH 4 TIMES DAILY NEEDED 09/01 completed Not Available Not Available Not Available famotidine 20 mg tablet Take 1 tablet twice a day by oral route as needed. active Not Available Not Available No t Available metoclopram gogo 5 mg tablet TAKE 1 TABLET BY MOUTH ONCE DAILY active Not Available Not Available No t Available dexamethaso ne 2 mg tablet TAKE 1 TABLET BY MOUTH EVERY 12 HOURS FOR 5 DAYS 09/01 completed Not Available Not Available Not Available cephalexin 500 mg capsule TAKE 1 CAPSULE BY MOUTH TWICE DAILY FOR 7 DAYS 11/24 completed Not Available Not Available Not Available erythromyci n 5 mg/gram (0.5 %) eye ointment APPLY A THIN 1/4 INCH STRIP TWICE A DAY FOR 3 DAYS BEFORE BUT NOT DAY OF SURGERY 09/01 completed Not Available Not Available Not Available hyoscyamine 0.125 mg sublingual tablet DISSOLVE 1 TABLET UNDER THE TONGUE THREE TIMES DAILY NEEDED active Not Available Not Available No t Available mupirocin 2 % topical ointment APPLY OINTMENT TOPICALLY TWICE DAILY active Not Available Not Available No t Available ondansetron 4 mg disintegrat ing tablet DISSOLVE 1 TABLET IN MOUTH TWICE DAILY NEEDED FOR NAUSEA active Not Available Not Available No t Available escitalopra m 5 mg tablet TAKE 1 TABLET BY MOUTH ONCE DAILY active Not Available Not Available No t Available sodium,pota ssium,mag sulfates 17.5 gram-3.13 gram-1.6 gram oral soln DRINK 6 OUNCES TWICE A DAY BY MOUTH DIRECTED FOR 1 DAY FOR COLONSCOP Y PREP active Not Available Not Available No t Available Vitals Date Recorded Body height Body mass index (BMI) Body weight Body temperature Heart rate Systolic And Diastolic Provider Name and Address Organization Details Last Updated DateTime 4 165.1 cm 23 kg/m2 66056.5 4 g 98.4 [degF] 77 /min 159/83 mm[Hg] Claudia JAMIL [facility] & [place] 4 09:58:54 Date Recorded Body height Body mass index (BMI) Body weight Body temperature Heart rate Systolic And Diastolic Provider Name and Address Organization Details Last Updated DateTime 4 165.1 cm 23.4 kg/m2 99905.4 5 g 98.9 [degF] 64 /min 141/63 mm[Hg] Claudia JAMIL [facility] & [place] 4 10:22:31 Date Recorded Body height Body mass index (BMI) Body weight Heart rate Body temperature Systolic And Diastolic Provider Name and Address Organization Details Last Updated DateTime 4 165.1 cm 22.5 kg/m2 23546.7 7 g 65 /min 97.4 [degF] 160/70 mm[Hg] [facility] & [place] 4 10:57:14 Date Recorded Body height Body mass index (BMI) Body weight Body temperature Heart rate Systolic And Diastolic Provider Name and Address Organization Details Last Updated DateTime 4 165.1 cm 22.4 kg/m2 09203.1 7 g 96.7 [degF] 62 /min 162/75 mm[Hg] Claudianik JAMIL [facility] & [place] 4 10:25:07 Date Recorded Body height Body mass index (BMI) Body weight Body temperature Heart rate Systolic And Diastolic Provider Name and Address Organization Details Last Updated DateTime 4 165.1 cm 22.3 kg/m2 36135.3 8 g 97.5 [degF] 72 /min 125/68 mm[Hg] [facility] OMERO [facility] & [place] 4 13:15:16 Social History None recorded. Functional Status Question Answer Note LastModified by Organization D etails LastModified Time What is your level of alcohol consumption? None [email or web address] Information not available 09/02/2023 Mental Status None recorded. Family History Nothing Reported. Medical History Condition Response Hernia Y GERD/Reflux Y Gynecological HistoryNo gynecological history recorded. Obstetrics History GPAL:G 0 P 0 0 0 0 Immunizations Vaccine Type Date Status Note Provider Nam e and Address Organization Details Recorded Time influenza, unspecified formulation 01/07/2023 completed Anat Marquezjose a [place], [place] - [facility] & [place] 11/25/2023 13:16:39 Past Encounters Encounter ID Performer Location Encounter Start Date Encounter Closed Date Diagnosis/Indication Diagnosis SNOMED-CT Code Diagnosis ICD10 Code Diagnosis Note [id number] Maxi Shen DNP, OUTSIDE SALESMAN, HEEL [employer] [address] [facility] [address] [place] [address] 09/02/2023 09:40:04 09/02/2023 10:19:23 Osteoporosis 70341273 M81.0 Increased blood pressure 63434138 R03.0 Anxiety 77187989 F41.9 Depressive disorder 3548 9007 F32.A Dysphagia 77597067 R13.1 0 I did speak with Dr. Leonardo this morning about patient. Agreed to follow through with ordering upper GI and proceed with EGD. We will provide her with some Levsin to assist with some symptom relief. I have asked that patient call me within 1 week if she has not heard from [facility] in regards to getting her set up for the upper GI. Patient verbalized adequate understand ing. Until then, avoid any foods that tend to be problemati c. We discussed staying well hydrated and getting adequate amounts of protein in. Plan of care discussed with patient all questions were answered. She may follow-up with us as needed. She will be notified of any abnormal testing results. Vomiting 932879052 R11.1 0 Difficulty swallowing fluid 611346071 R13.10 Difficulty swallowing food 682183473 R13.10 [id number] Maxi Shen, BRENDEN, OUTSIDE SALESMAN, HEEL SPR[employer] [address] [facility] [address] [facility] [place] [address] 09/23/2023 10:08:06 09/23/2023 11:14:25 Difficulty swallowing fluid 275553653 R13.10 Difficulty swallowing food 132034953 R13.10 Dysphagia 92165450 R13.1 0 I did speak with Dr. Leonardo regarding EGD results (she recommende d HHR) as well as Dr. Buck this morning about patient. with EGD. Dr. Buck also saw patient this morning as well. He recommends avoiding surgery if at all possible. He discussed possible feeding tube placement, but would like to try Reglan first. We will see her back in 3 weeks, sooner if needed. We will refill Levsin to assist with some symptom relief. Patient verbalized adequate understand ing. Until then, avoid any foods that tend to be problemati c. We discussed staying well hydrated and getting adequate amounts of protein in. Plan of care discussed with patient and her son and daughter-i n-law and all questions were answered. I also contacted central scheduling and initially she did not see the order, even though it states in [place] ot was received on 09-02-2023. She will call patient today to get her set up with UGI at [facility]. Nausea 367522238 R11.0 Vomiting 941716530 R11.1 0 [id number] TRU LEONARDO MD [facility] [address] [facility] [address] [place] [address] 10/07/2023 10:49:26 10/07/2023 12:51:55 Nutritional disorder 0310901 E46 Upper GI reviewed with concern for possible extrinsic compressio nCT scan with oral and IV contrast ordered to evaluate possible extrinsic GE junction compressio nLabs ordered today for nutrition evaluation and baselineFo llow-up after CT for further discussion s and to determine next steps. [id number] Maxi Shen, DNP, OUTSIDE SALESMAN, HEEL SPRAYER FIRST-C [facility] n [facility] [address] [facility] [address] [facility] [place] [address] 10/21/2023 10:11:49 10/21/2023 13:27:22 Increased blood pressure 95882850 R03.0 Advised to follow up with PCP. Pt also request that her testing results be sent to her PCP. I have asked pt to sign a ELYSIA at our front desk host. Difficulty swallowing fluid 375492137 R13.10 Dr. Buck saw patient this am as well. At this time, Dr Buck recommends getting her in with Dr. Franco for endoscopic Ultrasound to evaluate Duodenum. I will make appropriat e referral to Dr. Franco for this to occur. Difficulty swallowing food 946645543 R13.10 Vomiting 555832766 R11.1 0 Hiatal hernia 53620066 K 44.9 Dysphagia 78260381 R13.1 0 I did speak with Dr. Leonardo regarding EGD results (she recommende d HHR) as well as Dr. Buck this morning about patient. with EGD. Dr. Buck also saw patient this morning as well. He recommends avoiding surgery if at all possible. Will proceed with referring to Dr. Franco for EUS. . We will continue Levsin to assist with some symptom relief. Patient verbalized adequate understand ing. Until then, avoid any foods that tend to be problemati c. We discussed staying well hydrated and getting adequate amounts of protein in. Plan of care discussed with patient and her son and daughter-i n-law and all questions were answered. Weight loss 50769401 R63 .4 Nausea 137382106 R11.0 [id number] Maxi Shen, DNP, OUTSIDE SALESMAN, HEEL SPRAYER FIRST-C [facility] [address] [facility] [address] [place] [address] 11/25/2023 13:09:14 11/25/2023 15:41:21 Difficulty swallowing fluid 478055776 R13.10 Dr. Buck saw patient this am as well. At this time, Dr Buck recommends getting her in with Dr. Franco for Possible routine dilatation s via EGD. This would hopefully keep symptom control of esophageal dysmotilit y. We will send a note to [facility] and Dr. Buck states that he will also speak directly to Dr. Franco. At this time concentrat e on foods that she is able to keep down and tolerate. We will follow-up as needed. Difficulty swallowing food 673162593 R13.10 Dysphagia 26629624 R13.1 0 I did speak with Dr. Leonardo regarding EGD results (she recommende d HHR) as well as Dr. Buck this morning about patient. with EGD. Dr. Buck also saw patient this morning as well. He recommends avoiding surgery if at all possible. Will proceed with referring to Dr. Franco for EUS. . We will continue Levsin to assist with some symptom relief. Patient verbalized adequate understand ing. Until then, avoid any foods that tend to be problemati c. We discussed staying well hydrated and getting adequate amounts of protein in. Plan of care discussed with patient and her son and daughter-i n-law and all questions were answered. Hiatal hernia 84366243 K 44.9 Nausea 776623533 R11.0 Vomiting 322240662 R11.1 0 Health Concerns Section Related Observation LastModified by Organization Detai ls LastModified Time None Recorded Concern Status LastModified by Organization Details LastModified Time None Recorded Advance Directives Directive None Recorded Payers Insurance Date Sequence Insurance Name Policy Number Policy Puentes Covered Member ID Puentes Member ID Guarantor Name 11/25/2023 2 [employer] (MEDICARE SUPPLEMENT) Reba Hinson [id number] Reba Hinson 11/25/2023 1 [employer] (MEDICARE REPLACEMENT /ADVANTAGE - PPO) Reba Hinson [id number] Reba Hinson 11/25/2023 1 [place]ICARE[place] Reba Hinson [id number] Reba Olaf 11/25/2023 2 [employer] (MEDICARE SUPPLEMENT) Reba Hinson [id number] Reba Hinson Notes Date Note Type Note Provider Name and Address Organization Details Recorded Time 024 text/ht ml Patient presents for Post-Op Check s/p Robot assisted surgery take down of Dangelo fundoplication with conversion toupet and percutaneous esophagogastrostomy tube on May 21, 2021.patient has done relatively well up until last week when she began having issues with swallowing food as well as liquids. She tells me that she is unable to tolerate any type of pasta or dried meat. She also reports that she has been having to throw up her food because she does not feel like it will stay down as though food gets stuck in her throat. Patient tells me even water seems to be hard to swallow.Denies : Fever Pain Nausea Swelling upper extremities. Shortness of breath/Dyspnea. Change in bowel or bladder.Activity limited per postop restriction. Ambulating often.She is not tolerating po intake. she reports no nausea. Maxi Shen, DNP, OUTSIDE SALESMAN, HEEL SPRAYER FIRST-C [address], [place], [address], [facility] 09/02/2023 10:27:47 024 text/ht ml Patient presents for Post-Op Check s/p Robot assisted surgery take down of Dangelo fundoplication with conversion toupet and percutaneous esophagogastrostomy tube on May 21, 2021. Denies : Fever Pain Nausea Vomiting Swelling upper extremities. Shortness of breath/Dyspnea. Change in bowel or bladder.Activity limited per postop restriction. Ambulating often.She is not tolerating po intake or progressing diet back to her norm. She has been attempting to drink Ensure and Premier Protein shakes for breakfast and is only to keep drink down about 5-10 minutes. She is also unable to keep down water for more than 5 minutes. She has however, been able to tolerate [place] as well as certain prepared chicken ([facility]).She tells me that she has pain and difficulty swallowing.Last episode of vomiting was yesterday afternoon. She remains active and enjoys mowing her yard and staying active at home. Procedure / [id number] gogastroduodenoscopyPerformed by ROBB Centeno-Procedure DiagnosisGastroesophageal reflux diseaseVomitingHiatal herniaPost- Procedure DiagnosisHiatal herniaVomitingGastroesophageal reflux diseaseProcedure Description / FindingsINDICATIONS: This is a 78-year-old female who presented to clinic with complaints of p.o. intolerance to solids andrecently liquids. The patient has previously underwent hiatal hernia repair x2. The most recent repair was done inJ2021. This was done robotic with a toupee fundoplication. Recently the patient developed some worseningdysphagia, p.o. intolerance with vomiting of solids, And abdominal pain. She states the symptoms are similar tothe symptoms she had when she had a hiatal hernia in the past.OPERATION: After all risks, complications, and alternatives were explained to the patient and agreed upon and writteninformed consent obtained from the patient, the patient was properly identified in the preoperative holding area andtaken to the endoscopy suite for initiation of procedure. Intravenous sedation was given per Anesthesia. Bite blockwas placed in the oral cavity. The endoscope was advanced transorally down the esophagus into the stomach through thepylorus into the first, second and third portions of the duodenum. There were no duodenal lesions seen. There were noduodenal bulb ulcers seen. The scope was slowly withdrawn back into the stomach and retroflexed. There was evidenceof hiatal hernia noted. There were no large ulcerations. The scope was used to decompress the stomach and withdrawn.hiatal hernia was confirmed by withdrawing the scope. Hiatal hernia measures approximately 3 cm. The GE-junction anddistal esophagus are very friable and erythematous. Biopsies were not obtained due to significant mucosal irritationand friability. there was a mild amount of bleeding with the passage of the scope itself. Hemostasis was ensured atthe end of the procedure. The scope was used to decompress the remaining portion of the stomach and esophagus andremoved under direct visualization. The patient was taken to the recovery room in stable condition per Anesthesia.FINDINGS: For current hiatal hernia with significant irritation of the GE junction and distal esophagus.Anesthesia TypeGeneral anesthesiaProcedure VerficationPatient identity confirmed before operative/invasive procedure, Procedure time out, Verification of surgicalsite/lateralityEstimated Blood Lossminimal1 of 2GTCH - Post Procedure NoteGeUniversity of [place] Children's HospitalName Reba Hinson Date of Service 1039 [id number] (F)Attending ROBB AMBRIZ Admitted [id number] GAIL GARCIA - n of Patientpost anesthesia recovery unitwill have the patient come to clinic in order to discuss next steps and potential surgical intervention for herrecurrent hiatal hernia. Maxi Shen, BRENDEN, OUTSIDE SALESMAN, HEEL SPRAYER FIRST-C [address] , [place], [address], [place] - [facility] - [place] & [place] 09/23/2023 11:46:30 024 text/ht ml Still having nausea, but did have some partial relief with the medications. Presents today with her son. They continue to have concerns about her nutrition and want to know what the next steps are. LAST VISIT:Patient presents for Post-Op Check s/p Robot assisted surgery take down of Dangelo fundoplication with conversion toupet and percutaneous esophagogastrostomy tube on May 21, 2021. Denies : Fever Pain Nausea Vomiting Swelling upper extremities. Shortness of breath/Dyspnea. Change in bowel or bladder.Activity limited per postop restriction. Ambulating often.She is not tolerating po intake or progressing diet back to her norm. She has been attempting to drink Ensure and Premier Protein shakes for breakfast and is only to keep drink down about 5-10 minutes. She is also unable to keep down water for more than 5 minutes. She has however, been able to tolerate [place] as well as certain prepared chicken ([facility]).She tells me that she has pain and difficulty swallowing.Last episode of vomiting was yesterday afternoon. She remains active and enjoys mowing her yard and staying active at home. Procedure / [id number] gogastroduodenoscopyPerformed by ROBB Centeno-Procedure DiagnosisGastroesophageal reflux diseaseVomitingHiatal herniaPost- Procedure DiagnosisHiatal herniaVomitingGastroesophageal reflux diseaseProcedure Description / FindingsINDICATIONS: This is a 78-year-old female who presented to clinic with complaints of p.o. intolerance to solids andrecently liquids. The patient has previously underwent hiatal hernia repair x2. The most recent repair was done inJ of 2021. This was done robotic with a toupee fundoplication. Recently the patient developed some worseningdysphagia, p.o. intolerance with vomiting of solids, And abdominal pain. She states the symptoms are similar tothe symptoms she had when she had a hiatal hernia in the past.OPERATION: After all risks, complications, and alternatives were explained to the patient and agreed upon and writteninformed consent obtained from the patient, the patient was properly identified in the preoperative holding area andtaken to the endoscopy suite for initiation of procedure. Intravenous sedation was given per Anesthesia. Bite blockwas placed in the oral cavity. The endoscope was advanced transorally down the esophagus into the stomach through thepylorus into the first, second and third portions of the duodenum. There were no duodenal lesions seen. There were noduodenal bulb ulcers seen. The scope was slowly withdrawn back into the stomach and retroflexed. There was evidenceof hiatal hernia noted. There were no large ulcerations. The scope was used to decompress the stomach and withdrawn.hiatal hernia was confirmed by withdrawing the scope. Hiatal hernia measures approximately 3 cm. The GE-junction anddistal esophagus are very friable and erythematous. Biopsies were not obtained due to significant mucosal irritationand friability. there was a mild amount of bleeding with the passage of the scope itself. Hemostasis was ensured atthe end of the procedure. The scope was used to decompress the remaining portion of the stomach and esophagus andremoved under direct visualization. The patient was taken to the recovery room in stable condition per Anesthesia.FINDINGS: For current hiatal hernia with significant irritation of the GE junction and distal esophagus.Anesthesia TypeGeneral anesthesiaProcedure VerficationPatient identity confirmed before operative/invasive procedure, Procedure time out, Verification of surgicalsite/lateralityEstimated Blood Lossminimal1 of 2GTCH - Post Procedure NoteGeUniversity of [place] Children's HospitalName Reba Hinson Date of Service 1039 [id number] (F)Attending ROBB AMBRIZ Admitted [id number] GAIL GARCIA - n of Patientpost anesthesia recovery unitwill have the patient come to clinic in order to discuss next steps and potential surgical intervention for herrecurrent hiatal hernia. TRU LEONARDO MD [address] [facility], [place], [address], [facility] - [place] - [place] & [place] 10/07/2023 13:55:28 024 text/ht ml Patient presents for Post-Op Check s/p Robot assisted surgery take down of Dangelo fundoplication with conversion toupet and percutaneous esophagogastrostomy tube on May 21, 2021.Denies : Fever Pain Nausea Vomiting Swelling upper extremities. Shortness of breath/Dyspnea. Change in bowel or bladder.Activity limited per postop restriction. Ambulating often.She is not tolerating po intake or progressing diet back to her norm.She has been attempting to drink Ensure and Premier Protein shakes for breakfast and is only to keep drink down about 5-10 minutes. She is also unable to keep down water for more than 5 minutes. She has however, been able to tolerate [place] as well as certain prepared chicken ([employer]).She tells me that she has pain and difficulty swallowing.Last episode of vomiting was Thursday afternoon. at times, she is able to tolerate broccoli and cheese soup. Tried watermelon and did not tolerate it well.She remains active and enjoys mowing her yard and staying active at home. Procedure / [id number] gogastroduodenoscopyPerformed by ROBB Centeno-Procedure DiagnosisGastroesophageal reflux diseaseVomitingHiatal herniaPost- Procedure DiagnosisHiatal herniaVomitingGastroesophageal reflux diseaseProcedure Description / FindingsINDICATIONS: This is a 78-year-old female who presented to clinic with complaints of p.o. intolerance to solids andrecently liquids. The patient has previously underwent hiatal hernia repair x2. The most recent repair was done inJ2021. This was done robotic with a toupee fundoplication. Recently the patient developed some worseningdysphagia, p.o. intolerance with vomiting of solids, And abdominal pain. She states the symptoms are similar tothe symptoms she had when she had a hiatal hernia in the past.OPERATION: After all risks, complications, and alternatives were explained to the patient and agreed upon and writteninformed consent obtained from the patient, the patient was properly identified in the preoperative holding area andtaken to the endoscopy suite for initiation of procedure. Intravenous sedation was given per Anesthesia. Bite blockwas placed in the oral cavity. The endoscope was advanced transorally down the esophagus into the stomach through thepylorus into the first, second and third portions of the duodenum. There were no duodenal lesions seen. There were noduodenal bulb ulcers seen. The scope was slowly withdrawn back into the stomach and retroflexed. There was evidenceof hiatal hernia noted. There were no large ulcerations. The scope was used to decompress the stomach and withdrawn.hiatal hernia was confirmed by withdrawing the scope. Hiatal hernia measures approximately 3 cm. The GE-junction anddistal esophagus are very friable and erythematous. Biopsies were not obtained due to significant mucosal irritationand friability. there was a mild amount of bleeding with the passage of the scope itself. Hemostasis was ensured atthe end of the procedure. The scope was used to decompress the remaining portion of the stomach and esophagus andremoved under direct visualization. The patient was taken to the recovery room in stable condition per Anesthesia.FINDINGS: For current hiatal hernia with significant irritation of the GE junction and distal esophagus.Anesthesia TypeGeneral anesthesiaProcedure VerficationPatient identity confirmed before operative/invasive procedure, Procedure time out, Verification of surgicalsite/lateralityEstimated Blood Lossminimal1 of 2GTCH - Post Procedure NoteGeUniversity of Kentucky Children's HospitalName Reba Hinson Date of Service 1039 (F)Attending ROBB OTT KATINA Admitted [id number] GAIL GARCIA - n of Patientpost anesthesia recovery unitwill have the patient come to clinic in order to discuss next steps and potential surgical intervention for herrecurrent hiatal hernia. Maxi Shen, DNP, OUTSIDE SALESMAN, HEEL SPRAYER FIRST-C [address] [facility], [place], [address], [facility] - [place] - [place] & [place] 10/21/2023 11:15:35 024 text/ ml Patient presents for Post-Op Check s/p Robot assisted surgery take down of Dangelo fundoplication with conversion toupet and percutaneous esophagogastrostomy tube on May 21, 2021 Denies : Fever Pain, Swelling upper extremities. Shortness of breath/Dyspnea. Change in bowel or bladder. She does however continue to have episodes of nausea and vomiting. Patient states that she is frustrated because some days she can have a certain foods such as chicken and other days have the same type of chicken prepared the same way and not tolerate it well. Thus far she has not able to tolerate tuna, cantaloupe, watermelon or grapes. For breakfast she typically does a dry cereal such as go to a g and that is able to be tolerated. She does not have a snack before lunch. Lunch typically includes ensure, which does stay down. She will try to have a snack for after lunch including fruits but these typically do not stay down. For dinner last night she had tuna with some tomato and they did not say down. She tolerates 2 cups of coffee a day. Occasional sweet tea and water and this has been staying down. She will also occasionally tolerate cottage cheese.Activity limited per postop restriction. Ambulating often.Tolerating po intake and progressing diet back to their norm. She recently seen GI for EUS and is here today to discus results. She was told not to follow-up with Gastroenterology, but rather follow-up with Dr. Buck. Maxi Shen, DNP, OUTSIDE SALESMAN, HEEL SPR[employer]ER FIRST[facility] [id number] [facility] [facility], [place], [address], [facility] [place] & [place] 11/25/2023 14:27:10 OBGyn Episode No OBEpisode recorded.
--- NOTE | 2024-10-31 17:20 | PC.NURSE ---
Dr Rose at bedside
--- NOTE | 2024-10-31 17:21 | XR_ITS ---
PROCEDURE INFORMATION: Exam: XR Right Knee Exam date and time: 10/31/2024 5:29 PM Age: 79 years old Clinical indication: Injury or trauma; Fall; Blunt trauma; Knee; Right; Additional info: Fall, right knee pain TECHNIQUE: Imaging protocol: Radiologic exam of the right knee. Views: 1 or 2 views. COMPARISON: CR XR KNEE RT 3V 08/04/2023 9:22 AM FINDINGS: Bones/joints: Xuzq-il-kkwlrrbp tricompartmental osteoarthrosis. Small suprapatellar knee effusion, unchanged. No acute fracture or dislocation. Soft tissues: Cartilage calcifications. Vasculature: Vascular calcifications. IMPRESSION: No acute fracture or dislocation.
--- NOTE | 2024-10-31 17:21 | XR_ITS ---
PROCEDURE INFORMATION: Exam: XR Right Tibia and Fibula Exam date and time: 10/31/2024 5:29 PM Age: 79 years old Clinical indication: Pain; Lower leg; Right; Additional info: Fall, right knee/gomez pain TECHNIQUE: Imaging protocol: Radiologic exam of the right tibia and fibula. Views: 2 views. COMPARISON: CR XR TIBIA FIBULA RT 2V 10/31/2024 5:29 PM FINDINGS: Bones/joints: No acute fracture or dislocation. Soft tissues: Normal. IMPRESSION: No acute fracture or dislocation.
--- NOTE | 2024-10-31 17:28 | ED_ITS ---
Discharge Plan Disposition Patient Disposition: Home, Self-Care Prescriptions Prescriptions: No Action No Known Home Medications Referrals Follow up/Referrals: Vinicius Huizar MD [Primary Care Provider, Medical] - See instructions Activity Restrictions/Add. Instructions Additional Instructions/Restrictions: You can use ice and heating pads to help with the pain. You can also use Tyle nol to help with the pain. Be sure that you move the joint frequently and do not let it get stiff. You will likely be sore over the next few days. You can use the bacitracin ointment on your abrasions twice daily over the next few days until the wound heals. If you develop any new or worsening symptoms, or if you become concerned for your health for any reason, return to the emergency department for evaluation Clinical Impressions Clinical Impression: Acute pain of right knee, Abrasion of leg, right Instructions Patient Instructions: DI for Skin Abscess Print Language Print Language: Icelandic Discharge ED Provider: Cholo Rose General Adult HPI General Chief complaint: Skin/Abscess/Foreign Body Stated complaint: R Leg Pain and Swelling Time Seen by Provider: 10/31/24 17:15 Mode of Arrival: Ambulatory Source of Information: Patient Limitations: No Limitations History of Present Illness HPI narrative: Reba Babin is an 79-year-old female with no known past medical history who presents to the emergency department for complaints of a fall and right knee pain. Patient states that she was going down the steps to her apartment when she missed the last step and fell, hitting her right knee. She has been ambulatory after the incident but states that her right knee has been hurting her ever since. She states that hurts to bend the knee or bear weight. She did sustain a few scrapes to her gomez that she covered in bandages. She denies any blood thinner use. She denies any head trauma or loss of consciousness. She denies any numbness or tingling. She denies any preceding symptoms. Related Data Home Medications ?Medication ?Instructions ?Recorded ?Confirmed No Known Home Medications 07/04/2208/19 Allergies Allergy/AdvReac Type Severity Reaction Status Date / Time No Known Allergies Allergy Verified 06/28/24 15:19 [facility] Disclaimer: The information contained in this section may have been updated after the patient was seen, as this information can be updated by other users. Social History Smoking Status: Never smoker alcohol intake: never current occupational status: retired Travel in the last 8 weeks?: None Have you lived/traveled outside US in past 30 days?: No Contact w/someone who lives/traveled outside US past 30 days?: No Exposure to someone with infectious disease in past 14 days?: No Do you have a fever (greater than 100.4 F or 38 C)?: No Have you tested positive for COVID-19?: No Exposed to someone with COVID-19 in past 14 days?: No Do you have a sore throat?: No Do you have a cough?: No Do you have any weakness?: No Do you have any diarrhea?: No Are you experiencing any unusual bleeding?: No Do you have any muscle aches/pain?: No Do you have any abdominal pain?: No Are you experiencing loss of taste or smell?: No Other Medical History Have you received the Pneumonia Vaccine: Yes ROS Obtained: Yes Systems reviewed as appropriate & no additional complaints except as documented Physical Exam General General appearance: alert and in no apparent distress Head Head exam: atraumatic Eye Eye exam: Present normal appearance ENT ENT exam: Present normal external ear exam Neck Neck exam: Present full ROM Chest Chest inspection: Present symmetric chest wall rise Respiratory Respiratory exam: Present normal lung sounds bilaterally; Absent respiratory distress Cardiovascular Cardiovascular exam: Present regular rate and normal rhythm Abdominal Exam Abdominal exam: Present soft; Absent tenderness or guarding Extremities Exam Extremities exam: Present normal inspection and other (Right lower extremity: Tenderness over the right knee. Can bend knee to approximately 40 degrees but has pain beyond this. Superficial abrasions over the anterior gomez. 2+ DP and PT pulses. No significant swelling.) Back Exam Back exam: Present normal inspection Neurological Exam Neurological exam: Present alert and oriented X3 Psychiatric Psychiatric exam: Present normal affect Skin Skin exam: Present warm and dry Medical Decision Making Medical Records Screening: Per USPSTF and CDC recommendations, given the prevalence of disease in our region, it is our hospital?s policy to screen for HIV and viral Hepatitis for all patients aged 18 and over and those with ongoing risk factors. Kirill Inquiry Pt receiving controlled substance: No Vital Signs: 10/31/24 17:10 10/31/24 17:30 10/31/24 18:00 Temperature 97.8 F Temperature Source Oral Pulse Rate 69 60 Pulse Rate [Right] 78 Respiratory Rate 18 Blood Pressure 165/77 H 174/63 H Blood Pressure [Right Arm] 148/76 H Blood Pressure Mean Blood Pressure Mean [Right Arm] 100 Blood Pressure Source [Right Arm] Automatic Cuff 02 Sat by Pulse Oximetry 97 99 98 Oxygen Delivery Method Room Air 10/31/24 19:00 Temperature Temperature Source Pulse Rate 71 Pulse Rate [Right] Respiratory Rate Blood Pressure 169/78 H Blood Pressure [Right Arm] Blood Pressure Mean 108 Blood Pressure Mean [Right Arm] Blood Pressure Source [Right Arm] 02 Sat by Pulse Oximetry 98 Oxygen Delivery Method Orders (Tests/Meds): ED MEDICATIONS Generic Name Dose Route Start Last Admin Trade Name Freq PRN Reason Stop Dose Admin Bacitracin 1 gm 10/31/24 21:00 10/31/24 18:47 Bacitracin Zinc Oint 30gm Tube TP 11/30/24 20:59 1 gm BID CRISTI Administration Discontinued Medications Generic Name Dose Route Start Last Admin Trade Name Freq PRN Reason Stop Dose Admin Acetaminophen 1,000 mg 10/31/24 17:21 10/31/24 18:47 Acetaminophen 500mg Tab PO 10/31/24 17:22 1,000 mg ONCE ONE Administration ORDERS Category Date Time Status Fibula/tibia XR right 2 views [XR tibia fibula RT 2V] Exams 10/31/24 17:21 Completed Stat Knee XR right 2 views [XR knee RT 2V] Stat Exams 10/31/24 17:21 Completed Medical Decision Narrative: Reba Babin is an 79-year-old female with no known past medical history who presents to the emergency department for complaints of a fall and right knee pain. Patient states that she was going down the steps to her apartment when she missed the last step and fell, hitting her right knee. She has been ambulatory after the incident but states that her right knee has been hurting her ever since. She states that hurts to bend the knee or bear weight. She did sustain a few scrapes to her gomez that she covered in bandages. She denies any blood thinner use. She denies any head trauma or loss of consciousness. She denies any numbness or tingling. She denies any preceding symptoms. On ar rival, patient is hypertensive but otherwise hemodynamically stable. Afebrile. Physical exam, as stat dental diagnosis ed above, revealed an overall well- appearing female in no distress. She has superficial abrasions over the right gomez. Tenderness over the right knee. Limited range of motion of the knee secondary to pain. No significant swelling. Pulses intact distally. neurovascularly intact distally. Differential diagnosis includes, but is not limited to: Fracture, skin abrasion, dislocation, contusion, among others. The most morbid conditions were considered and workup was based on these. Workup in the emerged part included: Tib-fib x-ray, knee x-ray, lab work and EKG were considered, however these are not indicated at this time as patient's fall was mechanical in nature and would not change ED management. Patient was given Tylenol for pain. Patient's wounds were cleaned and bacitracin ointment was placed on the wounds with adhesive bandages X-ray imaging interpreted by me personally. No fracture, no dislocation. No other acute findings. See radiology report for details. Patient was able to ambulate here in the emergency department. Given this, thought that she is appropriate for discharge at this time with wound care with bacitracin ointment for her abrasions. She was instructed to take Tylenol at home to help with symptoms. Return precautions were given. All questions were answered. She demonstrated understanding and was in agreement with this plan. Critical Care Critical Care Time Critical Care Time: No
[2024-10-31 17:30] VITALS: BP 165/77; PULSE 69; O2SAT 99
[2024-10-31 18:00] VITALS: BP 174/63; PULSE 60; O2SAT 98
[2024-10-31] MEDS: ACETAMINOPHEN 500MG TAB 1000 MG PO (18:47)
[2024-10-31] MEDS: BACITRACIN ZINC OINT 30GM TUBE TP (18:47)
--- NOTE | 2024-10-31 18:55 | PC.NURSE ---
Called radiology to check on the read for images. States that images were sent to [facility] with a wait time of 90 min. Beena is going to chat with [facility]. Update pt & family of POC
[2024-10-31 19:00] VITALS: BP 169/78; PULSE 71; O2SAT 98
[2024-10-31 19:42] VITALS: BP 169/72; PULSE 71; RESP 14; TEMP 36.6; O2SAT 97
== END 2024-10-31 19:43 | disposition home or self-care (01) ==
PROVIDERS: Emergency Provider Student in an Organized Health Care Education/Training Program; PCP Family Medicine
DX: M25.561 Pain in right knee (principal); S80.811A Abrasion, right lower leg, initial encounter; W10.8XXA Fall (on) (from) other stairs and steps, initial encounter
CPT/HCPCS: 73560; 73590; 99284

== ENCOUNTER 2025-01-18 07:42 | Outpatient (CLI) | payer MEDICARE, OTHER, SELFPAY ==
--- OUTSIDE RECORDS SUMMARY | 2023-07-20 05:00 | XMS_ITS ---
[facility] [address] [facility] [address] [id number] Care Team Providers Care Area Operations Director Name Role Phone Vinicius Huizar Primary Care Provider Allergies No Known Allergies REASON FOR VISIT Follow Up on Knee Pain Encounters Encounter [facility] Date [facility] [address] [phone] 07/20/2023 Vinicius Huizar Plan Of Treatment No Information Progress Notes * Reba HINSONDOB:1945 (79 yo F)Acc No.[id number]:07/20/2023 Progress Notes Patient: Reba HUA Provider: Jocelyn Huizar M.D. :1945 A ge:77 Y S ex:Female Date:07/20/2023 Address:[address] [place], [place] [id number] Subjective: * Chief Complaints: * 1 . Follow Up on Knee Pain. * ROS: D ERMATOLOGY: no R laura. n o H linh. G ASTROENTEROLOGY: no N ausea. n o V omiting. U ROLOGY: no D ifficulty urinating. n o B lood in urine. * Medical History: E sophageal Reflux, Hiatal Hernia, Dr. Lutz @ , Thyroid Nodule, US done 08/2008, Esophageal Stricture. * Surgical History: G astric Bypass 1984, Bladder surgery 1995, LT knee surgery 2000, Cholecystectomy 2002, Bilateral Foot 1983, LT Wrist 1997, RT Wrist 1997, EGD 2011, 2015, Colonoscopy 2013, Hernia 07/04/2014, [facility]- Feeding Tube 09/2014, EGD 01/2021, Esophagus Surgery 05/2021. * Hospitalization/Major Diagno stic Procedure: D enies Past Hospitalization. * Family History: F ather: , heart disease. M other: . S iblings: [place], heart attack. 2 sister(s) - healthy. . * Social History: C URRENT TOBACCO USE S moking Status: Patient does NOT smoke. C affeine: yes, frequency:daily, coffee. Exercise: yes, walking. Home smoke detector use: yes. Marital Status: . Occupation: caregiver. Past smoking status: no. Recreational drug use: no. Alcohol: No. Sexually active: yes. * Allergies: N .K.D.A. Objective: * Vitals: Assessment: Plan: * Treatment: * Images: Billing Information: * Visit Code: * Procedure Codes: * Electronic signature of Lisbeth Huizar MD on 01/18/2025 at 07:45 AM EDT Sign off status: Pending * Provider: Jocelyn Huizar M.D. Date: 0 07/20/2023 Generated for Lynne sarah/Vikas/Kristyitting on: 0 01/18/2025 07:45 AM EDT
--- OUTSIDE RECORDS SUMMARY | 2023-10-08 06:30 | XMS_ITS ---
Author Organization [facility] Address [address] [facility] [address] [place] [id number] Care Team Providers Care Order Packer Or Packager Name Role Phone Vinicius Huizar Primary Care Provider Allergies No Known Allergies REASON FOR VISIT check up for refills Medications Medication SIG (Take, Route, Frequency, Duration) Notes Start Date End Date Status Metoclopramide HCl 5 MG 1 tablet before meals Orally Twice a day; Duration: 30 day(s) Active Vitamin D-3 125 MCG (5000 UT) 1 cap(s) orally once a week 12/24/2020 Active Alendronate Sodium 70 MG 1 tablet 30 min utes before the first food, beverage or medicine of the day with plain water Orally once weekly 12/23/2022 Active traMADol HCl 50 MG 1 tablet Orally four times a day as needed 07/18/2023 Active Escitalopram Oxalate 5 MG 1 tablet Orall y once daily; Duration: 90 days Active Hyoscyamine Sulfate 0.125 MG 1 tablet as needed Orally every 4 hrs Active Ondansetron 4 MG 1 tablet on the tong ue and allow to dissolve Orally Once a day; Duration: 30 day(s) Active Vital Signs Weight 138.8 lbs 10/08/2023 Blood pressure systolic 124 mm Hg 10/08/19 24 Blood pressure diastolic 80 mm Hg 024 Heart Rate 80 /min 10/08/2023 Height 63.50 in 10/08/2023 BMI 24.20 kg/m2 10/08/2023 Encounters Encounter Location Date Provider Diagnosis [facility] [address] [facility] [address] [place] [id number] 10/08/2023 Vinicius [place] Anxiety F41.9 Assessments Encounter Date Diagnosis (ICD Code) Assessment Notes Treatment Notes Treatment Clinical Notes Section Notes 10/08/2023 Anxiety (ICD-10 - F41.9) Plan Of Treatment Medication Medication Name Sig Start Date Stop Date Notes Escitalopram Oxalate 5 MG 1 tablet Orall y once daily; Duration: 90 days Next Appt Details Follow Up: 3 Months fasting, Reason: Progress Notes * Reba HINSONDOB:1945 (79 yo F)Acc No.[id number]:10/08/2023 Progress Notes Patient: Reba HUA Provider: Jocelyn Huizar M.D. :1945 A ge:78 Y S ex:Female Date:10/08/2023 Address:[address] [place] [address] Subjective: * Chief Complaints: * 1 . Check up for refills. * HPI: P sychology: 78 year old female presents with c/o Anxiety P t here to f/u on anxiety, states she is doing well on Escitalopram 5mg and does not have any concerns. * ROS: D ERMATOLOGY: no R laura. [...] no. Alcohol: No. Sexually active: yes. * Medications: T aking Metoclopramide HCl 5 MG Tablet 1 tablet before meals Orally Twice a day , Taking Hyoscyamine Sulfate 0.125 MG Tablet 1 tablet as needed Orally every 4 hrs , Taking Ondansetron 4 MG Tablet Disintegrating 1 tablet on the tongue and allow to dissolve Orally Once a day , Taking Vitamin D-3 125 MCG (5000 UT) Tablet 1 cap(s) orally once a week , Taking Alendronate Sodium 70 MG Tablet 1 tablet 30 minutes before the first food, beverage or medicine of the day with plain water Orally once weekly , Taking Escitalopram Oxalate 5 MG Tablet Take 1 tablet by mouth once daily , Taking traMADol HCl 50 MG Tablet 1 tablet Orally four times a day as needed , Discontinued dexAMETHasone 2 MG Tablet 1 tablet Orally every 12 hrs , Medication List reviewed and reconciled with the patient * Allergies: N .K.D.A. Objective: * Vitals: W t:138.8, Temp:97.9, BP:124/80, HR:80, Nurse:christian, Ht: 63.50, BMI:24.20. * Examination: P sychology: General Appearance: N AD. G rooming : a dequate.?Eye contact : n ormal. M ood : p leasant. H eart: R SR. L ungs: c lear to auscultation. Assessment: * Assessment: 1. A nxiety - F41.9 (Primary) Plan: * Treatment: * Procedure Codes: G 2211 Complex e/m visit add on * Follow Up: 3 Months fasting * Images: Billing Information: * Visit Code: 25130 Office Visit, Est Pt., Level 3. * Procedure Codes: G2211 Complex e/m visit add on. * Electronic signature of Lisbeth Huizar MD on 01/18/2025 at 07:46 AM EDT Sign off status: Pending * Provider: Jocelyn Huizar M.D. Date: 0 10/08/2023 Generated for Lynne sarah/Vikas/eTransmitting on: 0 01/18/2025 07:46 AM EDT History and Physical Notes * HPI (History of Present Illness) Category Sub-Category Detail Notes Category Not es Psychology Anxiety Pt here to f/u o n anxiety, states she is doing well on Escitalopram 5mg and does not have any concerns Examination Category Sub-Category Detail Notes Category Not es Psychology Heart: RSR Lungs: clear to auscultatio n General Appearance: NAD Grooming : adequate Eye contact : normal Mood : pleasant
--- OUTSIDE RECORDS SUMMARY | 2023-11-05 09:30 | XMS_ITS ---
Author Organization [facility] Address [address] [place] [phone] Care Team Providers Care Hospice Chaplain Name Role Phone Vinicius Huizar Primary Care Provider Ros Shel[place] Unavailable [phone] Allergies No Known Allergies REASON FOR VISIT [...] day(s) Active Mupirocin 2 % 1 application Senior Hris Analyst ally Twice a day 11/05/2023 Active Cephalexin [address] [place] [phone] 11/05/2023 Ros [place] Local infection of t alesisa skin and subcutaneous tissue, unspecified L08.9 and [...] Notes * Reba HINSONDOB:1945 (79 yo F)Acc No.[id number]:11/05/2023 Progress Notes Patient: Reba HUA Provider: RAMONA Massey :1945 A ge:78 Y S ex:Female Date:11/05/2023 Address:[address] [place], [place] [phone] Pcp:Vinicius Huizar Subjective: * Chief Complaints: * [...] * Images: Billing Information: * Visit Code: 77437 Office Visit, Est Pt., Level 3. * Procedure Codes: * Electronic signature of RAMONA Naik on 01/18/2025 at 07:45 AM EDT Sign off status: Pending * Provider: RAMONA Massey Date: 0 11/05/2023 Generated for Lynne sarah/Vikas/eTransmitting on: 0 01/18/2025 07:45 AM EDT History and Physical Notes * [...]
--- OUTSIDE RECORDS SUMMARY | 2024-01-07 05:30 | XMS_ITS ---
Author Organization [facility] Address [address] [facility] [address] [place] [phone] Care Team Providers Care Nuclear Criticality Safety Engineer Name Role Phone Vinicius Huizar Primary Care Provider Allergies No Known Allergies Results Component Value Reference Range Notes P-Vitamin B12 Reviewed date:01/08/2024 12:20:18 PM Interpretation:1439 Performing Lab: Notes/Report: Test performed by [facility] [address] [place], [place] [address] [place] , [address], [place] [address] Kojo Waldron MD, Tooth Inspector CLIA: [id number] Vitamin B12 8794 860-8007 pg/mL P-Comprehensive Metabolic Pa viktoriya (CMP) Reviewed date:01/08/2024 12:20:18 PM Interpretation:Normal Performing Lab: Notes/Report: Test performed by [facility] [address] [place] [address] , [address], [place] [address] Kojo Waldron MD, Tooth Inspector CLIA: [id number] Sodium 143 135-145 mmol/L Potassium 4.4 3.5-5.3 [...] Interpretation:Normal Performing Lab: Notes/Report: Test performed by [facility] [place], [place] [id number] [facility] , [place] [address] Kojo Waldron MD, Tooth Inspector CLIA: [id number] Cholesterol 139 <200 mg/dL Triglycerides 60 <150 [...] Interpretation:31.3 Performing Lab: Notes/Report: Test performed by [facility] [address] [place] [address] , [address], [place] [address] Kojo Waldron MD, Tooth Inspector CLIA: [id number] Vitamin D 25-Hydroxy 31.3 30.0-100.0 ng/mL Interpretation [...] 01/07/2024 Encounters Encounter Location Date Provider Diagnosis [facility] [address] [facility] [address] [place], [place] [phone] 01/07/2024 Vinicius [place] Anxiety F41.9 ; Ghada min D deficiency [...] Notes * Reba HINSONDOB:1945 (79 yo F)Acc No.[id number]:01/07/2024 Progress Notes Patient: Reba HUA Provider: Jocelyn Huizar M.D. :1945 A ge:78 Y S ex:Female Date:01/07/2024 Address:[address] [place] [address] Subjective: * Chief Complaints: * 1 . [...] * Images: Billing Information: * Visit Code: 29771 Office Visit, Est Pt., Level 4. * Procedure Codes: G2211 Complex e/m visit add on. * Electronic signature of Lisbeth Huizar MD on 01/18/2025 at 07:45 AM EDT Sign off status: Pending * Provider: Jocelyn Huizar M.D. Date: 0 01/07/2024 Generated for Lynne sarah/Vikas/Kristyitting on: 01/18/2025 07:45 AM EDT History and Physical [...]
--- OUTSIDE RECORDS SUMMARY | 2024-07-08 06:45 | XMS_ITS ---
Author Organization [facility] Address [address] [place] [id number] Care Team Providers Care Service Parts Driver Name Role Phone Vinicius Huizar Primary Care Provider Allergies No Known Allergies Results Component Value Reference Range Notes P-Vitamin D 25-Hydroxy Reviewed date:07/12/2024 10:36:09 AM Interpretation:40.6 Performing Lab: Notes/Report: CLIA: [id number] Kojo Waldron MD, Air Conditioning Coil Assembler [address] [place] [address] , [address], [place] [address] Test performed by [facility] Vitamin D 25-Hydroxy 40.6 30.0-100.0 ng/mL Interpretation [...] Status W/U Status Risk Notes Problem Osteoporosis (96574076) Osteoporosis, unspecified (M81.0) Active confirmed Vital Signs Weight 137 lbs 07/08/2024 Blood pressure systolic 120 mm Hg 07/09/19 25 Blood pressure diastolic 72 mm Hg 025 Heart Rate 64 /min 07/08/2024 Height 63.50 in 07/08/2024 BMI 23.89 kg/m2 07/08/2024 Encounters Encounter Location Date Provider Diagnosis [facility] [address] [place] [id number] 07/08/2024 Vinicius Huizar Anxiety F41.9 ; Osteoporosis [...] Notes * SRAVAN RebaDOB:1945 (79 yo F)Acc No.[id number]:07/08/2024 Progress Notes Patient: Reba HUA Provider: Jocelyn Huizar M.D. :1945 A ge:78 Y S ex:Female Date:07/08/2024 Address:[address] [place] [address] [place], [place] Subjective: * Chief Complaints: * 1 . [...] * Images: Billing Information: * Visit Code: 50293 Office Visit, Est Pt., Level 4. * Procedure Codes: G2211 Complex e/m visit add on. 3074F SYST BP LT 130 MM HG. 3078F DIAST BP < 80 MM HG. * Electronic signature of Lisbeth Huizar MD on 01/18/2025 at 07:45 AM EDT Sign off status: Pending * Provider: Jocelyn Huizar M.D. Date: 0 07/08/2024 Generated for Lynne sarah/Vikas/Kristyitting on: 0 01/18/2025 07:45 AM EDT History [...]
--- NOTE | 2025-01-18 07:44 | MM_ITS ---
PROCEDURE INFORMATION: Exam: MG Bilateral Screening 3D Mammography Exam date and time: 01/18/2025 8:04 AM Age: 79 years old Clinical indication: Screening mammogram. TECHNIQUE: Imaging protocol: Bilateral Screening tomosynthesis and 2D mammography including computer-aided detection (CAD) when performed. COMPARISON: 1. MG MM DIG SCREENING MAMM BI W/CAD 01/14/2024 8:25 AM 2. MG MM DIG SCREENING MAMM BI W/CAD 12/17/2022 8:19 AM 3. MG MM DIG SCREENING MAMM BI W/CAD 12/11/2021 8:02 AM 4. MG MM DIG SCREENING MAMM BI W/CAD 11/16/2020 8:33 AM FINDINGS: MAMMOGRAPHY: Breast composition: The breast is heterogeneously dense, which may obscure small masses. Mass: None. Architectural distortion: No new or suspicious architectural distortion. Calcifications: No new or suspicious calcifications are present Asymmetric density: No new or suspicious asymmetric density is present Skin thickening: None. Axillary adenopathy: None. IMPRESSION: No mammographic evidence of malignancy. Recommend annual screening mammography unless otherwise clinically indicated. ASSESSMENT: BI-RADS category 1: Negative.
--- OUTSIDE RECORDS SUMMARY | 2025-01-18 07:45 | XMS_ITS | Clinical Summary ---
Author Organization [facility] Address [address] [place] [address] Care Team Providers Care Machine Inspector Name Role Phone Unavailable Primary Care Provider Unavailabl e Social History Tobacco Use Types Packs/Day Years Used Date Smoking Tobacco: Never Assessed Abuse Screen Answer Date Recorded Unsafe at Home or Work/School Not on file Feels Threatened by Someone? Not on file 01/2023 Does Anyone Keep You from Co ntacting Others or Doint Things Outside the Home? Not on file 02/03/2023 Physical Sign of Abuse Present Not on file 1 Housing Stability Answer Date Recorded Current Living Arrangements Not on file 01/25 Potentially Unsafe Housing Conditions Not on piyush e 02/03/2023 Family and Community Support Answer Yaron e Recorded Help with Day-to-Day Activities Not on file 02/03/2023 Lonely or Isolated Not on file 02/03/2023 Employment Answer Date Recorded Do you want help finding or keeping work or a john b? Not on file 02/03/2023 Disabilities Answer Date Recorded Concentrating, Remembering, or Making Decisions Difficulty Not on file 02/03/2023 Doing Errands Independently Difficulty Not on fi le 02/03/2023 Education Answer Date Recorded Help with school or training? Not on file Preferred Language Not on file 02/03/2023 Comments Unknown Sex and Gender Information Value Date Recorded Sex Assigned at Not on file Legal Sex Female 1:53 PM EDT Gender Identity Not on file Sexual Orientation Not on file Plan of Treatment Health Maintenance Due Date Last Done Comments ANNUAL PHYSICAL 1945 DXA SCAN 1945 TDAP/TD VACCINES (1 - Tdap) 09/01/1963 Pneumococcal Vaccine 50+ (1 of 1 - PCV) 1994 ZOSTER VACCINE (1 of 2) 1994 RSV Vaccine - Adults (1 - 1-dose 75+ series) 0 INFLUENZA VACCINE 11/25/2024 COVID-19 Vaccine ( season) 2024
--- OUTSIDE RECORDS SUMMARY | 2025-01-18 07:45 | XMS_ITS ---
Author Organization Unknown Results OrderDate OrderTestName ResultName ResultDate Value Units Range AbnormalFlag ResultStatus ObservationNotes TestCode ResultCode DateRecorded AccessionNumber DiagnosticSectionCode DiagnosticSectionName Sequence Interpretation Cust om 01/07/2024 00:00:00 P-Vitamin D 25-Hydroxy Vitamin D 25-Hydroxy 9504-16-34M95:00:00 31.3 ng/mL 30.0-100.0 - ng/mL Reviewed Vanessa Curry 01/08/2024 12:20:10 PM > See phone encounter P-Vitamin D 25-Hydroxy Coding Vitamin D 25-Hydroxy 01/07/2024 00:00:00001/07/2024 00:00:00P-Lipid PanelTriglycerides 5160-14-99S64:00:0060mg/dL<150 - mg/dLReVanessa Billingsley 01/08/2024 12:20:10 PM > See phone encounter Coding P-Lipid Panel Coding Triglycerides 01/07/2024 00:00: 00:00:00P-Lipid PanelNon-HDL Cholesterol 5660-50-04S10:00:0086mg/dL<130 - mg/dLReVanessa Billingsley 01/08/2024 12:20:10 PM > See phone encounter Coding P-Lipid Panel Coding Non-HDL Cholesterol 01/07/2024 00:00: 00:00:00P-Lipid PanelLDL/HDL Ratio 3412-28-26D92:00:001.4Ratio<3.3 - RatioReVanessa Billingsley 01/08/2024 12:20:10 PM > See phone encounter Coding P-Lipid Panel Coding LDL/HDL Ratio 01/07/2024 00:00: 00:00:00P-Lipid PanelLDL Cholesterol (Calculation) 8538-75-84H31:00:0074mg/dL<130 - mg/dLReVanessa Billingsley Ann 01/08/2024 12:20:10 PM > See phone encounter Coding P-Lipid Panel Coding LDL Cholesterol (Calculation ) 01/07/2024 00:00:00001/07/2024 00:00:00P-Lipid PanelHDL Cholesterol 8175-87-46Y30:00:0053mg/dL>39 - mg/dLReVanessa Billingsley Ann 01/08/2024 12:20:10 PM > See phone encounter Coding P-Lipid Panel Coding HDL Cholesterol 01/07/2024 00:00:00001/07/2024 00:00:00P-Lipid PanelCholesterol 7482-56-08Q58:00:95632si/dL<200 - mg/dLReVanessa Billingsley Ann 01/08/2024 12:20:10 PM > See phone encounter Coding P-Lipid Panel Coding Cholesterol 01/07/2024 00:00: 00:00:00P-Lipid PanelCholesterol / HDL Ratio 7849-88-32O93:00:002.50Cesyk0.00-4.44 - RatioReVanessa Billingsley Ann 01/08/2024 12:20:10 PM > See phone encounter Coding P-Lipid Panel Coding Cholesterol / HDL Ratio 01/07/2024 00:00: 00:00:00P-Comprehensive Metabolic Panel (CMP)eGFR by Ustlhezsvo6034-10-59N48:00:0092mL/min/1.73m2>59 - mL/min/1.43k2ZcmidtchVanessa Cavanaugh Ann 01/08/2024 12:20:10 PM > See phone encounter Coding P-Comprehensive Metabolic Pa viktoriya (CMP) 01/07/2024 00:00:00001/07/2024 00:00:00P-Comprehensive Metabolic Panel (CMP) Rzosios8995-38-48H12:00:006.1g/dL6.0-8.3 - g/dLReVanessa Billingsley Ann 01/08/2024 12:20:10 PM > See phone encounter Coding P-Comprehensive Metabolic Pa viktoriya (CMP) Coding Protein 01/07/2024 00:00:00001/07/2024 00:00:00P-Comprehensive Metabolic Panel (CMP) Bmluao4609-98-20Z93:00:28074oqjx/G411-273 - mmol/LRevVanessa Edwards 01/08/2024 12:20:10 PM > See phone encounter Coding P-Comprehensive Metabolic Pa viktoriya (CMP) Coding Sodium 01/07/2024 00:00: 00:00:00P-Comprehensive Metabolic Panel (CMP) Wnavbjmum6995-84-51J39:00:004.4mmol/L3.5-5.3 - mmol/LRVanessa Fried 01/08/2024 12:20:10 PM > See phone encounter Coding P-Comprehensive Metabolic Pa viktoriya (CMP) Coding Potassium 01/07/2024 00:00: 00:00:00P-Comprehensive Metabolic Panel (CMP) Sewjage4334-87-91A08:00:0088mg/dL65-99 - mg/dLDimitri Goetzgh Ann 01/08/2024 12:20:10 PM > See phone encounter Coding P-Comprehensive Metabolic Pa viktoriya (CMP) Coding Glucose 01/07/2024 00:00: 00:00:00P-Comprehensive Metabolic Panel (CMP) Athyewrdzf1203-42-30D72:00:000.58mg/dL0.50-1.00 - mg/dLDimitri Goetzgh Ann 01/08/2024 12:20:10 PM > See phone encounter Coding P-Comprehensive Metabolic Pa viktoriya (CMP) Coding Creatinine 01/07/2024 00:00: 00:00:00P-Comprehensive Metabolic Panel (CMP)CO2 1854-00-66S29:00:0024mmol/L22-32 - mmol/LRevDimitri Edwardsgh Ann 01/08/2024 12:20:10 PM > See phone encounter Coding P-Comprehensive Metabolic Pa viktoriya (CMP) Coding CO2 01/07/2024 00:00:00001/07/2024 00:00:00P-Comprehensive Metabolic Panel (CMP) Auewbcmn7249-83-28I65:00:30857gaxz/L97-108 - mmol/LRevVanessa Edwards 01/08/2024 12:20:10 PM > See phone encounter Coding P-Comprehensive Metabolic Pa viktoriya (CMP) Coding Chloride 01/07/2024 00:00: 00:00:00P-Comprehensive Metabolic Panel (CMP) Sxujbcl7720-22-27S47:00:008.7mg/dL8.6-10.4 - mg/dLReVanessa Billingsley 01/08/2024 12:20:10 PM > See phone encounter Coding P-Comprehensive Metabolic Pa viktoriya (CMP) Coding Calcium 01/07/2024 00:00: 00:00:00P-Comprehensive Metabolic Panel (CMP)BUN 0984-07-89Q26:00:0017mg/dL8-23 - mg/dLVanessa Goetz 01/08/2024 12:20:10 PM > See phone encounter Coding P-Comprehensive Metabolic Pa viktoriya (CMP) Coding BUN 01/07/2024 00:00: 00:00:00P-Comprehensive Metabolic Panel (CMP) Bilirubin, Upryj1749-75-83S82:00:000.3mg/dL<0.2-1.2 - mg/dLReVanessa Cavanaugh 01/08/2024 12:20:10 PM > See phone encounter Coding P-Comprehensive Metabolic Pa viktoriya (CMP) Coding Bilirubin, Total 01/07/2024 00:00: 00:00:00P-Comprehensive Metabolic Panel (CMP)AST (SGOT)9639-70-16B14:00:0024IU/L<5-40 - IU/LRevVanessa Edwards 01/08/2024 12:20:10 PM > See phone encounter Coding P-Comprehensive Metabolic Pa viktoriya (CMP) Coding AST (SGOT) 01/07/2024 00:00: 00:00:00P-Comprehensive Metabolic Panel (CMP)ALT (SGPT)9856-34-55L13:00:0017IU/L<5-47 - IU/Vanessa Pimentel Ann 01/08/2024 12:20:10 PM > See phone encounter Coding P-Comprehensive Metabolic Pa vikotriya (CMP) Coding ALT (SGPT) 01/07/2024 00:00: 00:00:00P-Comprehensive Metabolic Panel (CMP) Alkaline Okpvlgorihh2424-64-10N75:00:0075IU/L35-121 - IU/Vanessa Lambert Ann 01/08/2024 12:20:10 PM > See phone encounter Coding P-Comprehensive Metabolic Pa viktoriya (CMP) Coding Alkaline Phosphatase 01/07/2024 00:00: 00:00:00P-Comprehensive Metabolic Panel (CMP) Bzagbtr1770-51-39R26:00:004.0g/dL3.5-5.3 - g/dLDimitri Goetzgh Ann 01/08/2024 12:20:10 PM > See phone encounter Coding P-Comprehensive Metabolic Pa viktoriya (CMP) Coding Albumin 01/07/2024 00:00: 00:00:00P-Comprehensive Metabolic Panel (CMP)A/G Bakti8765-98-23X63:00:001.91.1-2.5 -Vanessa Goetz Ann 01/08/2024 12:20:10 PM > See phone encounter Coding P-Comprehensive Metabolic Pa viktoriya (CMP) Coding A/G Ratio 01/07/2024 00:00: 00:00:00P-Vitamin B88Csahgll B12 0469-64-89Z27:00:321478mu/yY370-1815 - pg/mLDimitri Dixongh Ann 01/08/2024 12:20:10 PM > See phone encounter Coding P-Vitamin B12 Coding Vitamin B12 01/07/2024 00:00: 00:00:00P-Vitamin D 25-HydroxyVitamin D 25-Hydroxy 0147-77-83G53:00:0040.6ng/mL30.0-100.0 - ng/mLRDianne Correa 07/12/2024 10:36:04 AM > See phone encounter Coding P-Vitamin D 25-Hydroxy Coding Vitamin D 25-Hydroxy 07/08/2024 00:00:00
--- OUTSIDE RECORDS SUMMARY | 2025-01-18 07:46 | XMS_ITS | Patient Health Record ---
[facility] Organization [facility] Address [address] [place] [id number] Care Team Providers Care Lead Software Qa Engineer Name Role Phone Chloe Huizarian Primary Care Provider Allergies No Known Allergies Results Component Value Reference Range Notes P-Vitamin D 25-Hydroxy Reviewed date:07/12/2024 10:36:09 AM Interpretation:40.6 Performing Lab: Notes/Report: Test performed by [facility] [address] [place] [address] , [address], [place] [address] Kojo Waldron MD, Electrical Mechanical Technician CLIA: [id number] Vitamin D 25-Hydroxy 40.6 30.0-100.0 ng/mL Interpretation of Vitamin D 25 [place]: < 20 ng/mL - Deficiency 20 - 29 ng/mL - Insufficiency 30 - 100 ng/mL - Sufficiency > 100 ng/mL - Super-therapeutic- toxicity may occur above this level. Clinical correlation required. Medications Medication SIG (Take, Route, Frequency, Duration) Notes Start Date End Date Status Escitalopram Oxalate 5 MG 1 tablet Orall y Once a day; Duration: 30 days Active Alendronate Sodium 70 MG 1 tablet 30 min utes before the first food, beverage or medicine of the day with plain water Orally Once a Week; Duration: 30 days Active Vitamin D-3 125 MCG (5000 UT) 1 cap(s) orally once a week 12/24/2020 Active Immunizations Vaccine Route Administration Date Status Comme nts xFluzone (6mos and older)-trivalent IM Intramuscular 03/15/2010 Administered xFluzone (6mos and older)-trivalent IM Intramuscular 04/25/2013 Administered xFlu shot-36 months and older IM Intramuscular 12/29/2008 Administered xFlu shot-36 months and older IM Intramuscular 01/23/2011 Administered Tetanus Tdap-Adacel (over 7yrs) IM Intramuscular 01/15/2017 Administered Shingrix Unknown 03/30/2020 Administered Prevnar (PCV20) IM Intramuscular 01/23/2022 Administered Prevnar (PCV13) IM Intramuscular 06/01/2015 Administered PNEUMOVAX 23 VACCINE IM Intramuscular 01/15/2017 Administe red Fluzone PF Quad (6-35 months) Unknown 01/03/2023 Administered Fluzone High Dose (65yr and older) [...] (65yr and older) IM Intramuscular 01/23/2022 Administered COVID 19 Moderna Unknown 05/30/2020 Administered COVID 19 Moderna Unknown 06/27/2020 Administered COVID 19 Moderna Unknown 03/04/2021 Administered Problems Problem Type SNOMED Code ICD Code Onset Dates Problem Status W/U Status Risk Notes Problem Hiatal hernia (17711665) Hiatal hernia (553.3) Active confirmed Problem Vitamin D deficiency (48624315) Vitamin D deficiency (E55.9) Active confirmed Problem Anxiety (92566285) Anxiety (F41.9) Active confirmed Problem Vitamin B12 deficiency (non anemic) (15657072) Vitamin B 12 deficiency (E53.8) Active confirmed Problem Adjustment disorder with mixed anxiety and depressed mood (948485745) Adjustment disorder with mixed anxiety and depressed mood (F43.23) Active confirmed Problem Mammography abnormal (676804650) Abnormal mammogram of left breast (R92.8) Active confirmed Problem Osteoporosis (99313139) Osteoporosis (M81.0) Active confirmed Problem Osteoporosis (00117395) Osteoporosis, unspecified (M81.0) Active confirmed Problem Arthritis of left knee (160517510153996 4) Arthritis of left knee (M17.12) Active confirmed Vital Signs Heart Rate 64 /min 07/08/2024 Blood pressure diastolic 72 mm Hg 07/08/2024 Height 63.50 in 07/08/2024 Blood pressure systolic 120 mm Hg 07/08/2024 Weight 137 lbs 07/08/2024 BMI 23.89 kg/m2 07/08/2024 Encounters Encounter Location Date Provider Diagnosis [facility] [address] [facility] [address] [place] [id number] 07/08/2024 V[place] Anxiety F41.9 ; Osteoporosis M81.0 ; Vitamin D deficiency E55.9 and Osteoporosis, unspecified M81.0 [facility] [address] [facility] [address] [place] [id number] 01/17/2025 Vinicius [place] Osteoporosis M81.0 a nd Anxiety F41.9 [facility] [address] [facility] [address] [place], [place] [id number] 07/12/2024 [place] [facility] [address] [facility] [address] [place] [id number] 11/08/2024 Vinicius [place] Osteoporosis M81.0 a nd Anxiety F41.9 Assessments Encounter Date Diagnosis (ICD Code) Assessment Notes Treatment Notes Treatment Clinical Notes Section Notes 07/08/2024 Anxiety (ICD-10 - F41.9) 07/08/2024 Osteoporosis (ICD-10 - M81.0) 11/08/2024 Osteoporosis (ICD-10 - M81.0) 01/17/2025 Osteoporosis (ICD-10 - M81.0) 01/17/2025 Anxiety (ICD-10 - F41.9) 11/08/2024 Anxiety (ICD-10 - F41.9) 07/08/2024 Vitamin D deficiency (ICD-10 - E55.9) 07/08/2024 Osteoporosis, unspecified (ICD-10 - M81.0) Plan Of Treatment Pending Test Test Name Order Date Mammogram 01/05/2025 Insurance Providers Payer Name Payer Address Payer Phone Subscriber Number Group Number Insured Name Patient Relationship to Insured Coverage Start Date Coverage End Date MEDICARE PART B [address] [address] [place] [address] [id number] Reba Babin Self - patient is the insured [employer] [address] [address] [place], [place] [id number] Reba Babin Self - patient is the insured Medications Administered Medication Instructions Date of Administration Dosage Notes Depo- Medrol 40 mg/ml 09/05/2021 1.5 mL Medical (General) History Medical History History ICD Code Esophageal Reflux Hiatal Hernia, Dr. Lutz @ [facility] Thyroid Nodule, US done 08/2008 Esophageal Stricture Vitamin D deficiency osteoporosis Surgical History Surgery Date(Month/Year) Esophageal dilitation October 2023 Esophageal dilitation 05/2021 EGD 01/2021 [facility]- Feeding Tube 09/2014 Hernia 07/04/2014 Colonoscopy 2014 EGD 2011, 2015 RT Wrist 1998 LT Wrist 1998 Bilateral Foot 1984 Cholecystectomy 2002 LT knee surgery 2000 Bladder surgery 1995 Gastric Bypass 1984 Hospitalization History Reason Date(Month/Year)
== END 2025-01-18 23:59 | disposition home or self-care (01) ==
LOC: RAD 07:43
PROVIDERS: PCP Family Medicine; Visit Provider Family Medicine
DX: Z12.31 Encounter for screening mammogram for malignant neoplasm of breast (principal); R92.333 Mammographic heterogeneous density, bilateral breasts
CPT/HCPCS: 77063; 77067